=== PATIENT | female | born 1940 | race Caucasian/White ===

== ENCOUNTER 2017-05-06 14:47 | Inpatient (IN) | payer MEDICARE, BC ==
[2017-05-06 15:29] LABS: #Eosinphils 0.2 thou/uL (0.0-0.7); #Lymphocytes 3.3 thou/uL (1.20-3.40); #Monocytes 0.7 thou/uL (0.11-0.59); #Neutrophils 7.6 thou/uL (1.40-6.50); %Basophils 0.4 % (0.0-1.0); %Eosinophils 1.5 % (0.0-10.0); %Lymphocytes 27.8 % (21.0-51.0); %Monocytes 6.3 % (0.0-10.0); Hematocrit 46.2 % (36.0-47.0); Mean Platelet Volume 7.4 fL (7.4-10.4); Red Blood Cell (RBC) Count 5.01 mill/uL (4.20-5.40); White Blood Cell (WBC) Count 11.9 thou/uL (4.8-10.8)
--- NOTE | 2017-05-06 15:32 | RAD ---
PORTABLE CHEST: Date: 05/06/17 HISTORY: Chest pain. FINDINGS: Heart size and mediastinum are within normal limits. The lungs are clear of any focal infiltrative p rocess. There are no significant bony findings. IMPRESSION: No active intrathoracic disease. POS: [facility]
[2017-05-06 16:00] LABS: ALT (SGPT) 38 U/L (8-55); AST (SGOT) 28 U/L (5-34); Alkaline Phosphatase 69 U/L (40-150); Anion Gap 18 mmol/L (10-20); BUN (Urea Nitrogen) 15 mg/dL (9.8-20.1); Bilirubin, Total 0.6 mg/dL (0.2-1.2); CK (CPK) 119 U/L (29-168); Calc. Creatinine Clearance 0 mL/min (70-130); Calcium 10.6 mg/dL (7.8-10.44); Carbon Dioxide 24 mmol/L (23-31); Chloride 104 mmol/L (98-107); Estimated GFR-MDRD 68; Globulin 3.4 g/dL (2.4-3.5); Lipase 30 U/L (8-78); Protein, Total 7.7 g/dL (6.0-8.3)
[2017-05-06 16:05] LABS: Troponin I 0.893 ng/mL (< 0.028)
[2017-05-06] MEDS ORDERED: Enoxaparin Sodium 80 MG/0.8 ML SYRINGE ONE (16:16)
[2017-05-06] MEDS ORDERED: ISOVUE-370 76%-LOCM 1 ML ONE (16:41)
--- NOTE | 2017-05-06 17:16 | CT ---
CTA THORAX WITH CONTRAST: (Computed Tomographic Angiography, chest(noncoronary) with contrast material, and image postprocessi ng) (PE protocol) HISTORY: 76-year-old female with chest pain and dyspnea. TECHNIQUE: IV injection of iodinated contrast: 100 mL Isovue-370. Scan acquisition timing attempted to coincide with iodinated contrast bolus reaching maximal density in pulmonary arteries. 3D MIP reconstructions. FINDINGS: Pulmonary thromboembolism: None. Lungs: Clear. Pneumothorax: None. Pleural effusion: None. Thoracic aorta: No aneurysm or dissection. Mediastinum: No lymphadenopathy or other mass. Dalia: No lymphadenopathy or other mass. There is a 16 mm round, exophytic, well circumscribed mass protruding from the dorsal cortical surfa ce of the left renal upper pole, with density of approximately 55 HU. Hepatic attenuation is diffusely low, consistent with fatty liver. IMPRESSION: 1. No pulmonary thromboembolism. 2. No evidence of active intrathoracic disease. 3. Intermediate density 1.6 cm pedunculated mass arising from cortex of left kidney. This could be a hemorrhagic renal cyst, but neoplasm is a possibility. Further evaluation is recommended, beginnin g with a renal ultrasound. If this is not visible on the renal ultrasound, then a 3-phase CT of the abdomen with and without contrast (renal mass protocol) would be recommended. 4. Hepatic steatosis. sonia[] POS: [facility]
[2017-05-06] MEDS ORDERED: Lorazepam 1 MG TAB PO PRN (18:05)
[2017-05-06] MEDS ORDERED: Dextrose 50% Abboject 50 ML SYRINGE SLOW IVP PRN (18:05)
[2017-05-06] MEDS ORDERED: Dextrose 5% in Water 1,000 ML IV PRN (18:05)
[2017-05-06] MEDS ORDERED: Acetaminophen 325 MG TAB PO PRN (18:05)
[2017-05-06] MEDS ORDERED: Morphine Sulfate 2 MG/ML SYRINGE SLOW IVP PRN (18:05)
[2017-05-06] MEDS ORDERED: HumaLOG 300 UNITS/3 ML VIAL SC PRN (18:05)
[2017-05-06 18:16] VITALS: BMI 29.5
[2017-05-06] MEDS: Nitroglycerin 2% Ointment 1 INCH/1 GM Packet TOP SCH ×2 (19:04→23:00)
--- NOTE | 2017-05-06 20:37 | HP ---
PRIMARY CARE PHYSICIAN: Dr. Cain. CHIEF COMPLAINT: Dyspnea on exertion. HISTORY OF PRESENT ILLNESS: Ms. Person is a very pleasant 76-year-old female that has a history o f hypertension and diabetes mellitus. She says that she began noticing a problem about a week or so ago. She says that she normally goes for about a 2 mile walk every day and goes to her exercise cl asses 4 times a week. She says that on Tuesday when she was walking she felt a tightness in the left side of her chest on the left breast. She says that this would essentially come and go. She also says that she was more short of breath. She says that she could barely walk from the parking garage to a pinto in a stadium where she was going to watch the some [employer] Olympics like games. She als o had gone up the stairs in this stadium and when she got up in the top, she was extremely winded an d had to rest. Her son had asked her to go and get some sunglasses out of the car, but she was unab le to because she was extremely tired; this was very unusual for her. About an hour and a half late r, she was able to go down the stairs again. She also says that during the week she was not able to complete some of her exercise classes due to shortness of breath; and also on the day of admission, she was more short of breath trying to do her usual errands and social activities and volunteering and as a result, she came in to see her primary care physician who did an EKG on her and thought it looked a bit different and sent her to the emergency room. In the ER, she was found to have an elev ated troponin of 0.89 and is being admitted for a non-ST segment elevated LA. Currently, the patien t says she feels great and does not feel like she needs to be in the hospital. REVIEW OF SYSTEMS: Constitutional: There have been no fevers, chills, no night sweats, no weight l oss. HEENT: No headaches, no dizziness, no visual changes, no sore throat, rhinorrhea, neck pain, no adenopathy. Pulmonary: No hemoptysis, no cough, no wheezing. Cardiovascular: As the history o f present illness. There is no PND, no orthopnea. No lower extremity edema. Gastrointestinal: No abdominal pain. No nausea. No vomiting. No change in bowels. Genitourinary: No urinary frequen cy, hematuria. No hesitancy. Neurologic: No focal weakness or numbness. No seizures. Psychiatri c: No symptoms of anxiety or depression. Skin and Integument: No skin changes. No rash. PAST MEDICAL HISTORY: Significant for diabetes mellitus for the past 12 years, hyperlipidemia, hype rtension, anxiety, and degenerative joint disease. PAST SURGICAL HISTORY: She has had a colonoscopy, hysterectomy, and wrist surgery. ALLERGIES: CODEINE, PENICILLIN, SIMVASTATIN that she cannot remember ever being allergic to this me dicine, SOY SULFA, GABAPENTIN and TRAMADOL. FAMILY HISTORY: Significant for diabetes mellitus in her father. Mother had cerebrovascular diseas e and cancer and her sister had coronary artery disease in her 70s. SOCIAL HISTORY: She is a nonsmoker, nondrinker. She is , has two children. MEDICATIONS: Include glimepiride 2 mg daily, losartan 50 mg daily, metformin 500 mg daily, Januvia 5 mg daily, metronidazole gel. PHYSICAL EXAMINATION: GENERAL: She is alert and oriented. She appears to be in no acute distress. She appears much leo amparo than her stated age. VITAL SIGNS: Blood pressure is 125/78, heart rate 91, respiratory rate of 15, temperature is 98.2. HEENT: Pupils are equal, round, and reactive. Extraocular muscles are intact. Sclerae are anicter ic. Throat: There is no erythema. No exudates. NECK: No adenopathy. No bruits. LUNGS: Clear. No wheezing. No rales. CARDIOVASCULAR: She has a normal S1, S2. I did not appreciate an S3 or S4. No murmurs, clicks or rubs. ABDOMEN: Soft, nontender, nondistended. Positive for bowel sounds. There is no rebound or guardin g. EXTREMITIES: There is no edema. She has got good dorsalis pedis pulses bilaterally. There are no lesions on the feet. NEUROLOGICALLY: The exam is grossly nonfocal. SIGNIFICANT LABORATORY AND X-RAYS: EKG was sinus rhythm, the rate was 107. She had some Q-waves in 3 and some T-wave abnormality in V2, V3 and V5. Her troponin was 0.893. Sodium 142, potassium 4.2 , chloride is 104, CO2 is 24, BUN of 15, creatinine 0.82, glucose was 86. White blood cell count 11 .9, hemoglobin 15.1, hematocrit is 46.2, and platelet count was 278,000. ASSESSMENT AND PLAN: Ms. Person is a 76-year-old female that is being admitted for an acute coron olimpia syndrome. Her anginal equivalent is dyspnea on exertion. She will be admitted to Telemetry. W e will start her on aspirin, nitrates as tolerated and low dose beta-bo, as well as heparin. S he says that she does not remember being allergic to a statin and is not sure where that came from. Therefore, we will give one time dose of statin and watch her progress. Get an echocardiogram and Cardiology will be consulted. For her diabetes, we will place her on a sliding scale insulin and wi ll leave her n.p.o. after midnight.
[2017-05-06] MEDS: Atorvastatin Calcium 10 MG TAB PO SCH (20:39)
[2017-05-06] MEDS: Docusate 100 MG CAP PO SCH (20:44)
[2017-05-06] MEDS: Famotidine 20 MG TAB PO SCH (20:44)
[2017-05-06] MEDS ORDERED: Enoxaparin Sodium 30 MG/0.3 ML SYRINGE SC SCH (21:00)
[2017-05-06] MEDS: Dextrose 5 % And 0.9 % NaCl 1,000 ML IV SCH (22:59)
[2017-05-06] MEDS ORDERED: Glimepiride 2 MG TAB PO SCH (23:00)
[2017-05-06] MEDS ORDERED: Alogliptin Benzoate 25 MG TABLET PO SCH (23:00)
[2017-05-06 23:30] LABS: Troponin I 2.043 ng/mL (< 0.028)
[2017-05-07 05:44] LABS: #Eosinphils 0.2 thou/uL (0.0-0.7); #Lymphocytes 2.7 thou/uL (1.20-3.40); #Monocytes 0.6 thou/uL (0.11-0.59); %Basophils 0.4 % (0.0-1.0); %Eosinophils 2.2 % (0.0-10.0); %Lymphocytes 31.3 % (21.0-51.0); %Monocytes 6.8 % (0.0-10.0); Hematocrit 40.7 % (36.0-47.0); Mean Platelet Volume 7.7 fL (7.4-10.4); Red Blood Cell (RBC) Count 4.42 mill/uL (4.20-5.40); White Blood Cell (WBC) Count 8.5 thou/uL (4.8-10.8)
[2017-05-07 06:08] LABS: Anion Gap 13 mmol/L (10-20); BUN (Urea Nitrogen) 14 mg/dL (9.8-20.1); Calc. Creatinine Clearance 86 mL/min (70-130); Calcium 9.3 mg/dL (7.8-10.44); Carbon Dioxide 26 mmol/L (23-31); Chloride 103 mmol/L (98-107); Cholesterol 164 mg/dl (< 200 Desired); Estimated GFR-MDRD 77; LDL Cholesterol, Calculated 87 mg/dL
[2017-05-07] MEDS: Nitroglycerin 2% Ointment 1 INCH/1 GM Packet TOP SCH ×3 (07:17→17:22)
[2017-05-07] MEDS: Aspirin 325 MG TAB PO SCH (08:33)
[2017-05-07] MEDS: Famotidine 20 MG TAB PO SCH ×2 (08:34→21:45)
[2017-05-07] MEDS: Docusate 100 MG CAP PO SCH ×2 (08:34→21:45)
[2017-05-07] MEDS ORDERED: Enoxaparin Sodium 80 MG/0.8 ML SYRINGE SC SCH (09:00)
--- NOTE | 2017-05-07 10:07 | PDOC.PN ---
- Subjective Encounter Start Date: 05/07/17 Encounter Start Time: 10:04 Ms. Person does not have any complaints. she says last night she may have had a little tightness in her chest, and felt a bit short of breath while going to the bathroom, but she is better now. - Objective Resuscitation Status: Resuscitation Status FULL:Full Resuscitation MAR Reviewed: Yes Vital Signs & Weight: Vital Signs (12 hours) Temp Pulse Resp BP Pulse Ox 05/07/17 08:39 97.9 F 80 16 125/66 93 L 05/07/17 04:00 98.1 F 90 18 111/56 L 92 L 05/07/17 00:00 88 18 139/69 Weight Weight 181 lb 14.4 oz I&O: 05/06/17 05/07/17 05/08/17 06:59 06:59 06:59 Intake Total 830 Output Total 900 Balance -70 Result Diagrams: 05/07/17 04:44 05/07/17 04:44 Additional Labs: Accuchecks 05/07/17 05/06/17 05/06/17 05:58 20:58 19:01 POC Glucose 157 H 170 H 99 Phys Exam - Physical Examination HEENT: PERRLA Respiratory: no wheezing, no rales, no rhonchi, clear to auscultation bilateral Cardiovascular: RRR, no significant murmur Gastrointestinal: soft, non-tender, positive bowel sounds Musculoskeletal: no edema Dx/Plan (1) NSTEMI (non-ST elevated myocardial infarction) Code(s): I21.4 - NON-ST ELEVATION (NSTEMI) MYOCARDIAL INFARCTION Status: Acute (2) Hypertension Code(s): I10 - ESSENTIAL (PRIMARY) HYPERTENSION Status: Acute (3) Diabetes mellitus type 2 in obese Code(s): E11.69 - TYPE 2 DIABETES MELLITUS WITH OTHER SPECIFIED COMPLICATION; E66.9 - OBESITY, UNSPECIFIED Status: Acute - Plan * NSTEMI- will continue the current medications- and await cardiology evaluation * HTN- blood pressure is stable * DM- continue Sliding scale insulin- Metformin is being held in case she goes for Cardiac Cath.
[2017-05-07] MEDS ORDERED: Diazepam 5 MG TAB PO SCH (13:15)
[2017-05-07] MEDS ORDERED: Communication Order-Pharmacy FS SCH (13:15)
[2017-05-07] MEDS: Sodium Chloride 0.9% 1,000 ML IV SCH ×2 (13:45→21:45)
[2017-05-07] MEDS ORDERED: Heparin 10,000 UNITS/1 ML VIAL ONE (15:18)
[2017-05-07] MEDS ORDERED: Nitroglycerin 100MG/250ML BOT 250 ML ONE (15:18)
[2017-05-07] MEDS ORDERED: Fentanyl 100 MCG/2 ML VIAL ONE (15:18)
[2017-05-07] MEDS ORDERED: Midazolam HCl 2 mg/2 ml Vial ONE (15:19)
[2017-05-07] MEDS ORDERED: Iopamidol 370 76% 100 ML VIAL ONE (16:34)
[2017-05-07] MEDS: Carvedilol 3.125 MG TAB PO SCH (17:22)
--- NOTE | 2017-05-07 18:12 | CON ---
DATE OF CONSULTATION: 05/07/2017 REFERRING PHYSICIAN: Dr. Hernandez. PRIMARY CARE PHYSICIAN: Dr. Coe. REASON FOR CONSULTATION: Non-ST segment elevation myocardial infarction. HISTORY OF PRESENT ILLNESS: Mrs. Person is a very active 76-year-old female, who presen ts with progressive shortness of breath, dyspnea on exertion over the past week. She presented to er primary care physician's office, who did an EKG and recommended that she go to the ER. Serial ca rdiac enzymes proved positive for myocardial injury with elevation of her troponin to approximately 2. She has had symptoms for about a week with progressive worsening of shortness of breath over thi s period of time. PAST MEDICAL HISTORY: 1. Type 2 diabetes mellitus for 12 years. 2. Dyslipidemia. 3. Hypertension. 4. Degenerative joint disease. PAST SURGICAL HISTORY: 1. Colonoscopy. 2. Hysterectomy. 3. Wrist surgery. ALLERGIES: CODEINE, PENICILLIN, SIMVASTATIN, SOY, SULFA, GABAPENTIN, TRAMADOL. SOCIAL HISTORY: She denies tobacco use, ethanol abuse, or illicit or recreational drug use. She is with 2 children. FAMILY HISTORY: Negative with respect to premature atherosclerosis. MEDICATIONS: Include, 1. Glimepiride 2 mg daily. 2. Losartan 50 mg daily. 3. Metformin 500 mg daily. 4. Januvia 5 mg daily. 5. Metronidazole gel. REVIEW OF SYSTEMS: As per history of present illness. Remainder of 12 system review is negative. PHYSICAL EXAMINATION: VITAL SIGNS: Blood pressure is 142/67, pulse 80 and regular, respiratory rate 16 and nonlabored, te mperature 97.7, oxygen saturation 92% on room air. GENERAL: This is a well-developed, well-nourished, 76-year-old female in no acute distres s. She is alert and oriented x4. She answers questions appropriately. HEENT: Head was atraumatic, normocephalic. Pupils are equally round and reactive. Sclerae and con junctivae are clear. There are no oral lesions. NECK: Supple, no JVD, thyromegaly, carotid bruits. CHEST: Symmetrical inspiration and expiration. HEART: Regular rate and rhythm. No murmur, S3 or S4. PMI is nondisplaced. Not enlarged. LUNGS: Clear to auscultation in all plata. No adventitious sounds appreciated. ABDOMEN: Soft, nontender, nondistended, without mass or organomegaly. Bowel sounds are present in all 4 quadrants. No flank bruits auscultated. EXTREMITIES: 2+ pulses noted bilaterally. Upper and lower extremity strength 5/5 bilaterally. No clubbing, cyanosis, or edema. NEUROLOGIC: Grossly intact. No focal motor deficits appreciated. DATABASE: EKG reveals sinus rhythm, nonspecific ST changes. LABORATORY DATA: CBC reveals a white count of 8, H\T\H of 13 and 40, platelet count 215,000. Diffe rential white blood cells normal. Red cell indices normocytic. Coagulation studies: D-dimer is elevated at 0.59. Chemistries reveal normal electrolytes, BUN and creatinine of 14 and 0.7, GFR is estimated at 77. L FTs are within normal limits. Troponins elevated to peak of 2 trending downward, currently. Lipids revealed elevated triglycerides at 195, otherwise normal values. ASSESSMENT: 1. Non-ST segment elevation myocardial infarction. 2. Hypertension, marginally controlled. 3. Dyslipidemia, no current therapy. 4. Type 2 diabetes mellitus, on oral agents. RECOMMENDATIONS: 1. From a cardiac standpoint, she is stable and chest pain free currently. We have discussed the o ptions including invasive strategy for evaluation and treatment as indicated, which is recommended. We have discussed risks, benefits, possible complications involving heart catheterization, plus or minus interventional strategies, as indicated she wishes to proceed. We will make further recommend ations when her anatomy is further defined. 2. We will initiate medical therapy for coronary artery disease and status post PR and initiate marcos que stabilization with Crestor with outpatient followup after this hospitalization. I appreciate the opportunity to participate.
[2017-05-07] MEDS: Alogliptin Benzoate 25 MG TABLET PO SCH (21:44)
[2017-05-07] MEDS: Glimepiride 2 MG TAB PO SCH (21:45)
[2017-05-07] MEDS: Atorvastatin Calcium 10 MG TAB PO SCH (21:45)
[2017-05-07] MEDS: Dextrose 5 % And 0.9 % NaCl 1,000 ML IV SCH (21:46)
[2017-05-08] MEDS: Nitroglycerin 2% Ointment 1 INCH/1 GM Packet TOP SCH ×4 (00:03→20:20)
[2017-05-08] MEDS: Aspirin 325 MG TAB PO SCH (08:15)
[2017-05-08] MEDS: Carvedilol 3.125 MG TAB PO SCH ×2 (08:15→17:02)
[2017-05-08] MEDS: Famotidine 20 MG TAB PO SCH ×2 (08:15→20:21)
[2017-05-08] MEDS: Docusate 100 MG CAP PO SCH ×2 (08:16→20:22)
[2017-05-08] MEDS: Sodium Chloride 0.9% 1,000 ML IV SCH ×2 (08:17→17:05)
--- NOTE | 2017-05-08 10:57 | CON ---
DATE OF CONSULTATION: 05/08/2017 REASON FOR CONSULTATION: Evaluation for coronary artery bypass surgery. PERTINENT HISTORY: Patient is a 76-year-old female who presented yesterday with a [id number] elevation myocardial infarction. Peak troponin I was 2.04. Cardiac catheterization demonstrated severe 1 vessel disease involving the LAD, not amenable to catheter-based intervention. Ejection fraction was 50% . LVEDP was 10. The patient was subsequently referred for coronary artery bypass surgery. PAST MEDICAL HISTORY: 1. Hypertension. 2. Borderline dyslipidemia. 3. Degenerative joint disease. PAST SURGICAL HISTORY: 1. Left wrist ORIF. 2. Hysterectomy. 3. Colonoscopy. ALLERGIES: CODEINE, PENICILLIN, SIMVASTATIN, SULFA, GABAPENTIN, and TRAMADOL. SOCIAL HISTORY: Non-smoker. Occasional white wine drinker. FAMILY HISTORY: Noncontributory for premature coronary artery disease. REVIEW OF SYSTEMS: No history of kidney or liver disease, stroke, or claudication. LABORATORY DATA AND X-RAY: Creatinine 0.74. Hemoglobin 13.0. Platelet count 215,000. Chest x-ray shows no acute process. MEDICATIONS PRIOR TO ADMISSION: Included losartan, Januvia, Amaryl, and metformin. CURRENT MEDICATIONS: Alogliptin, aspirin, Lipitor, Capoten, Coreg, Colace, Lovenox, Pepcid, Amaryl, and Nitro-Bid. PHYSICAL EXAMINATION: VITAL SIGNS: Height 5 feet 8 inches, weight 182 pounds, blood pressure 134/68, heart rate 96, temperature 96.2. GENERAL: Well-developed, well-nourished female, in no acute distress. She is fully oriented. HEENT: Grossly unremarkable. NECK: Without JVD or adenopathy. LUNGS: Clear with good inspiratory effort. HEART: Regular rate and rhythm without murmur or rub. ABDOMEN: Soft and nontender, without palpable mass or hepatosplenomegaly. EXTREMITIES: Without edema. VASCULAR: Palpable radial, femoral, and ankle pulses bilaterally. No carotid bruits were appreciated. Abdominal aorta is nonpalpable. NEUROLOGIC: No focal deficits. IMPRESSION: [id number] elevation myocardial infarction, severe one-vessel coronary artery disease not amenable to catheter-based intervention, and mild reduction in left ventricular function. RECOMMENDATIONS: Coronary artery bypass surgery to which the patient is in agreement following discussion with her referring guard manager and myself. The indications, benefits, alternatives, and risks were explained in detail to the patient. All questions were answered. The patient agrees to proceed without reservations. The above discussion will be reiterated to the patient's and daughter when I have a chance to meet with them preoperatively. ANGELA
[2017-05-08] MEDS: Dextrose 5 % And 0.9 % NaCl 1,000 ML IV SCH (14:36)
--- NOTE | 2017-05-08 16:10 | PDOC.CTH ---
Cardiology Progress Note - Subjective No new issues overnight. Plan for surgery in am discussed with patient and family. Case discussed with Dr. Mancilla. ROS negative today. - Objective Vital Signs Temp Pulse Pulse Pulse Resp BP BP 05/08/17 15:55 98 F 87 16 05/08/17 15:47 133/71 05/08/17 12:01 98.4 F 84 16 05/08/17 09:57 89 83 132/63 05/08/17 08:15 134/68 05/08/17 07:51 96.2 F L 96 20 BP BP Pulse Ox Pulse Ox Pulse Ox 05/08/17 15:55 133/71 92 L 05/08/17 15:47 05/08/17 12:01 119/62 94 L 05/08/17 09:57 132/63 93 L 93 L 05/08/17 08:15 05/08/17 07:51 134/68 92 L Weight 182 lb 05/07/17 05/08/17 05/09/17 06:59 06:59 06:59 Intake Total 830 2300 Output Total 900 2200 Balance -70 100 - Physical Examination General/Neuro: alert & oriented x3, NAD Neck: carotid US brisk, no JVD present Lungs: CTA, unlabored respirations Heart: PMI normal, RRR Abdomen: no HSM, NT/ND, soft Extremities: other: (2+ pulses, no edema) Other PE findings: Neuro: no focal motor defs - Telemetry Telemetry Rhythm: sinus rhythm - Labs Result Diagrams: 05/07/17 04:44 05/07/17 04:44 Troponin/CKMB CK-MB (CK-2) 6.2 ng/mL (0-6.6) 05/06/17 15:15 Troponin I 1.660 ng/mL (< 0.028) H* 05/07/17 07:06 - Assessment/Plan 1. CAD, s/p NSTEMI: CABG planned for tomorrow. 2. HTN: controlled. Continue medical management. 3. dyslipidemia: statin recommended for life.
[2017-05-08] MEDS: Atorvastatin Calcium 10 MG TAB PO SCH (20:20)
[2017-05-08] MEDS: Alogliptin Benzoate 25 MG TABLET PO SCH (20:23)
[2017-05-08] MEDS: Glimepiride 2 MG TAB PO SCH (20:24)
[2017-05-09] MEDS: Nitroglycerin 2% Ointment 1 INCH/1 GM Packet TOP SCH ×2 (02:26→04:57)
[2017-05-09] MEDS: Sodium Chloride 0.9% 1,000 ML IV SCH ×2 (04:53→13:48)
[2017-05-09] MEDS: Carvedilol 3.125 MG TAB PO SCH (05:04)
[2017-05-09] MEDS ORDERED: Heparin 10,000 UNITS/1 ML VIAL 30,000 UNITS in Sodium Chloride 0.9% 1,000 ML FS SCH (07:00)
[2017-05-09] MEDS ORDERED: Vancomycin HCl 1.5 GM in Sodium Chloride 0.9% 250 ML 300 ML IVPB SCH (08:00)
[2017-05-09] MEDS ORDERED: [UNRECOGNIZED DRUG - REMARK] FS SCH (08:00)
[2017-05-09] MEDS ORDERED: Albumin 5% 500 ML ONE (08:56)
[2017-05-09] MEDS ORDERED: Fentanyl 250 MCG/5 ML VIAL ONE (08:56)
[2017-05-09] MEDS ORDERED: Midazolam HCl 5 mg/5 ml Vial ONE (08:56)
[2017-05-09] MEDS ORDERED: Propofol 200 MG/20 ML VIAL ONE (09:48)
[2017-05-09] MEDS ORDERED: ePHEDrine/0.9% NaCl/PF SYRINGE 50 mg/10 ml ONE (09:48)
[2017-05-09] MEDS ORDERED: PHENYLEPHRINE-NS 100 MCG/ML 10 ML SYRINGE ONE ×2 (09:48→12:52)
[2017-05-09] MEDS ORDERED: Esmolol 100 MG/10 ML VIAL ONE (09:48)
[2017-05-09] MEDS ORDERED: Lidocaine 1% PF 5 ML VIAL ONE (09:48)
[2017-05-09] MEDS ORDERED: Papaverine 60 MG/2 ML VIAL ONE (10:54)
[2017-05-09] MEDS ORDERED: Phenylephrine 10 MG/NS 250 ML 0 ML ONE (11:40)
[2017-05-09] MEDS ORDERED: Phenylephrine 10 MG/NS 250 ML 250 ML ONE (12:50)
[2017-05-09] MEDS ORDERED: Nitroglycerin 50 MG/250 ML BOT 250 ML IVPB PRN (13:28)
[2017-05-09] MEDS ORDERED: Norepinephrine 8 MG/0.9% NS 250 ML IVPB PRN (13:28)
[2017-05-09] MEDS ORDERED: Ondansetron HCl/PF 4 MG/2 ML Vial IVP PRN (13:28)
[2017-05-09] MEDS ORDERED: Bisacodyl 5 MG TAB PO PRN (13:28)
[2017-05-09] MEDS ORDERED: Phenylephrine 10 MG/NS 250 ML 250 ML IVPB PRN (13:28)
[2017-05-09] MEDS ORDERED: Bisacodyl 10 MG SUPP PR PRN (13:28)
[2017-05-09] MEDS ORDERED: Promethazine HCl 25 MG/ML VIAL IM PRN (13:28)
[2017-05-09] MEDS ORDERED: DOPamine 400 MG/D5W 250 ML 250 ML IVPB PRN (13:28)
[2017-05-09] MEDS ORDERED: Guaifenesin DM 100-10/5 ML UDCUP PO PRN (13:28)
[2017-05-09] MEDS ORDERED: Morphine Sulfate 2 MG/ML SYRINGE SLOW IVP PRN (13:28)
[2017-05-09] MEDS ORDERED: Acetaminophen 325 MG TAB PO PRN (13:28)
[2017-05-09] MEDS ORDERED: Mag-Al 1200 mg/1200 mg/30 ML UDCUP PO PRN (13:28)
[2017-05-09] MEDS ORDERED: HYDROcodone/Acetaminophen 5/325 mg Tablet PO PRN ×2 (13:28)
[2017-05-09] MEDS ORDERED: Post-Op Insulin Drip Protocol IVPB ONE (13:28)
[2017-05-09] MEDS ORDERED: Dextrose 5% in Water 1,000 ML IV PRN (13:31)
[2017-05-09] MEDS ORDERED: Insulin Regular 300 UNITS/3 ML VIAL SC PRN (13:31)
[2017-05-09] MEDS ORDERED: Dextrose 50% Abboject 50 ML SYRINGE SLOW IVP PRN (13:31)
[2017-05-09 13:39] LABS: Mechanical Tidal Volume 550 ml; Mode SIMV; Oxyhemoglobin 95.8 % (94.0-97.0); Pressure Support 10 cmH2O; Sodium 142 mmol/L (135-148); Vent YES
[2017-05-09 13:41] LABS: #Eosinphils 0.2 thou/uL (0.0-0.7); #Lymphocytes 1.7 thou/uL (1.20-3.40); #Monocytes 0.6 thou/uL (0.11-0.59); #Neutrophils 10.8 thou/uL (1.40-6.50); %Basophils 0.4 % (0.0-1.0); %Eosinophils 1.4 % (0.0-10.0); %Lymphocytes 12.9 % (21.0-51.0); %Monocytes 4.2 % (0.0-10.0); Mean Platelet Volume 7.8 fL (7.4-10.4); White Blood Cell (WBC) Count 13.3 thou/uL (4.8-10.8)
[2017-05-09 13:47] LABS: PTT 25.8 SEC (22.9-36.1)
[2017-05-09 14:13] LABS: Anion Gap 11 mmol/L (10-20); BUN (Urea Nitrogen) 8 mg/dL (9.8-20.1); Calc. Creatinine Clearance 99 mL/min (70-130); Carbon Dioxide 21 mmol/L (23-31); Chloride 111 mmol/L (98-107); Estimated GFR-MDRD 90
--- NOTE | 2017-05-09 14:55 | RAD ---
CHEST ONE VIEW: History: Heart surgery. Comparison: 05-06-17 FINDINGS: Cardiac silhouette is magnified by projection. Pulmonary vasculature is unremarkable. Mediastinum is midline with post-operative changes now evident. Radiopaque drain overlies the mediastinum. Nasogas tric tube descends to the stomach. Tip of the endotracheal catheter overlies the thoracic inlet. Car diac monitor leads overlie the chest. IMPRESSION: 1. Post-operative changes of mediastinum with lines and tubes as detailed above. POS: [facility]
[2017-05-09 15:18] LABS: Oxyhemoglobin 97.8 % (94.0-97.0); Sodium 143 mmol/L (135-148)
[2017-05-09 15:19] LABS: Oxyhemoglobin 97.7 % (94.0-97.0); Sodium 143 mmol/L (135-148)
[2017-05-09 15:19] LABS: Oxyhemoglobin 97.8 % (94.0-97.0); Sodium 142 mmol/L (135-148)
--- NOTE | 2017-05-09 15:33 | PDOC.PN ---
- Subjective Encounter Start Date: 05/09/17 Encounter Start Time: 15:32 Ms. Person has returned from surgery. She is awake and alert. She indicates some discomfort in the left side under her breast, otherwise ok. - Objective Resuscitation Status: Resuscitation Status FULL:Full Resuscitation MAR Reviewed: Yes Vital Signs & Weight: Vital Signs (12 hours) Temp Pulse Resp BP BP Pulse Ox 05/09/17 15:13 80 121/61 05/09/17 14:15 95 F L 80 14 100 05/09/17 14:00 95 F L 05/09/17 13:15 86 128/44 L 05/09/17 05:02 144/77 H 05/09/17 05:01 144/77 H 05/09/17 04:25 97.8 F 93 16 144/77 H 93 L Weight Weight 181 lb 6 oz Most Recent Monitor Data Heart Rate from ECG 81 NIBP 110/63 NIBP BP-Mean 90 Respiration from ECG 13 SpO2 100 I&O: 05/08/17 05/09/17 05/10/17 06:59 06:59 06:59 Intake Total 2300 3260 Output Total 2200 1300 325 Balance 100 1960 -325 Result Diagrams: 05/09/17 13:35 05/09/17 13:35 Additional Labs: Accuchecks 05/09/17 05/09/17 05/09/17 15:16 13:29 12:16 POC Glucose 215 H 219 H 197 H 05/09/17 05/09/17 05/08/17 11:03 06:29 20:51 POC Glucose 169 H 169 H 173 H 05/08/17 17:00 POC Glucose 158 H Phys Exam - Physical Examination HEENT: PERRLA Respiratory: no wheezing, no rales, no rhonchi, clear to auscultation bilateral Cardiovascular: RRR, no significant murmur, no rub Gastrointestinal: soft, non-tender, positive bowel sounds Musculoskeletal: edema present Dx/Plan (1) NSTEMI (non-ST elevated myocardial infarction) Code(s): I21.4 - NON-ST ELEVATION (NSTEMI) MYOCARDIAL INFARCTION Status: Acute (2) Hypertension Code(s): I10 - ESSENTIAL (PRIMARY) HYPERTENSION Status: Acute (3) Diabetes mellitus type 2 in obese Code(s): E11.69 - TYPE 2 DIABETES MELLITUS WITH OTHER SPECIFIED COMPLICATION; E66.9 - OBESITY, UNSPECIFIED Status: Acute - Plan * NSTEMI- s/p CABG- patient is hemodynamically stable * HTN- blood pressure is stable * DM- blood glucose is slightly elevated- she is on the post CABG protocol. * Monitor renal function
[2017-05-09 15:40] LABS: Oxyhemoglobin 94.9 % (94.0-97.0); Sodium 142 mmol/L (135-148); Spontaneous Rate 22 min; Vent YES
[2017-05-09 15:41] LABS: Mode PSV; Pressure Support 10 cmH2O
[2017-05-09 15:45] LABS: Mode OR ABG; Vent YES
[2017-05-09 15:46] LABS: Mode OR ABG; Vent YES
[2017-05-09 15:46] LABS: Mode OR ABG; Vent YES
[2017-05-09] MEDS: Fentanyl 100 MCG/2 ML VIAL SLOW IVP PRN ×3 (15:51→21:36)
[2017-05-09] MEDS: Ketorolac Tromethamine 30 MG/ML VIAL IVP SCH ×2 (17:10→23:16)
[2017-05-09] MEDS ORDERED: Ketorolac Tromethamine 30 MG/ML VIAL IVP SCH (18:00)
[2017-05-09] MEDS: Famotidine/PF 20 mg/2ml Vial SLOW IVP SCH (19:29)
[2017-05-09] MEDS: Vancomycin HCl 1.5 GM in Sodium Chloride 0.9% 250 ML 300 ML IVPB SCH (19:34)
--- NOTE | 2017-05-09 20:07 | OP ---
PREOPERATIVE DIAGNOSES: Put-RA-[id number] elevation myocardial infarction, severe 1-vessel coronary artery disease not amenable to catheter-based intervention, and mild reduction in left ventricular function. SURGEON: Jeremy Mancilla M.D. MANAGER BUILDING: Reece Jonas M.D. POSTOPERATIVE DIAGNOSES: [id number] elevation myocardial infarction, severe 1-vessel coronary artery disease not amenable to catheter-based intervention, and mild reduction in left ventricular function. SPONGE AND NEEDLE COUNTS: Correct. ANESTHESIA: General. OPERATION PROCEDURE: Off-pump coronary artery bypass grafting x2 with left internal mammary artery to left anterior descending and reversed greater saphenous vein to diagonal. OPERATION FINDINGS: Moderate cardiomegaly with no obvious LV scarring. The distal diagonal was the only suitable diagonal for grafting. At the sites of distal anastomosis the LAD was 1.5 mm and the diagonal 1.5-1.75 mm. Left internal mammary artery and greater saphenous vein were adequate conduits. DESCRIPTION OF OPERATION: The patient was taken to the operating room. Following the induction of general endotracheal anesthesia, the patient was prepped and draped in the usual sterile fashion. Sternotomy was performed. Left internal mammary artery was dissected in extrapleural fashion. Simultaneously, a segment of left thigh greater saphenous vein was harvested via one small incision. The operation was performed off pump using the guidance system and mister-blower. Heparin dose was given achieving an ACT greater than 350. The vein graft was anastomosed in end-to-side fashion to the diagonal using a continuous 7-0 Prolene suture. In similar fashion, the left internal mammary artery was anastomosed to the LAD. The mammary artery pedicle was tacked to the epicardium using 6-0 Prolene sutures. Neither distal anastomoses required additional sutures. Systemic pressure was lowered to 80. Partial occluding clamp was applied with a single application and the proximal vein graft anastomoses performed to a punch hole using a continuous 6-0 Prolene suture. Partial clamp was removed and vein graft deaired. Heparin was reversed with protamine. Pericardium was not closed. Reuben drains were placed within the pericardial well and left pleural cavity. Sternum was reapproximated with interrupted #5 stainless steel wires. Linea alba and fascia were closed with running #1 Vicryl sutures followed by closure of the subcutaneous tissues with a running 2-0 Vicryl suture. Skin was closed with a 3 -0 Vicryl subcuticular stitch. Amicar had been used in standard fashion through the case. No intraoperative blood products were required. Prior to closure, vancomycin paste had been applied to the sternal halves. Platelet- enriched and platelet-poor plasma had also been applied to the sternal wound. The patient was taken to the ICU. ANGELA
[2017-05-09] MEDS: Potassium Chloride 20 MEQ/100 ML PREMIX BAG IVPB PRN (21:36)
[2017-05-10] MEDS: Fentanyl 100 MCG/2 ML VIAL SLOW IVP PRN ×4 (00:36→09:24)
[2017-05-10] MEDS: Ketorolac Tromethamine 30 MG/ML VIAL IVP SCH ×4 (05:01→23:45)
[2017-05-10 05:31] LABS: #Lymphocytes 1.5 thou/uL (1.20-3.40); #Neutrophils 12.4 thou/uL (1.40-6.50); %Basophils 0.2 % (0.0-1.0); %Eosinophils 0.2 % (0.0-10.0); %Lymphocytes 10.2 % (21.0-51.0); %Monocytes 6.9 % (0.0-10.0); Hematocrit 32.9 % (36.0-47.0); Mean Platelet Volume 7.7 fL (7.4-10.4); Red Blood Cell (RBC) Count 3.57 mill/uL (4.20-5.40)
[2017-05-10 05:58] LABS: Anion Gap 10 mmol/L (10-20); BUN (Urea Nitrogen) 10 mg/dL (9.8-20.1); Calc. Creatinine Clearance 83 mL/min (70-130); Calcium 8.9 mg/dL (7.8-10.44); Carbon Dioxide 23 mmol/L (23-31); Chloride 111 mmol/L (98-107); Estimated GFR-MDRD 74
[2017-05-10] MEDS: Potassium Chloride 20 MEQ/100 ML PREMIX BAG IVPB PRN (06:19)
--- NOTE | 2017-05-10 08:03 | PDOC.PN ---
- Subjective Encounter Start Date: 05/10/17 Encounter Start Time: 08:00 Ms. Person is complaining of some soreness on both her side, in her chest area. She denies any dyspnea. - Objective Resuscitation Status: Resuscitation Status FULL:Full Resuscitation MAR Reviewed: Yes Vital Signs & Weight: Vital Signs (12 hours) Temp Pulse Ox 05/10/17 07:00 98.1 F 05/10/17 06:43 95 05/10/17 05:00 97.9 F 05/10/17 00:00 97.9 F Weight Weight 190 lb 7.67 oz Most Recent Monitor Data Heart Rate from ECG 109 NIBP 89/47 NIBP BP-Mean 63 Respiration from ECG 0 SpO2 95 I&O: 05/09/17 05/10/17 05/11/17 06:59 06:59 06:59 Intake Total 3260 1223.9 90 Output Total 1300 2060 10 Balance 1960 -836.1 80 Result Diagrams: 05/10/17 04:30 05/10/17 04:30 Additional Labs: Accuchecks 05/10/17 05/10/17 05/10/17 06:59 06:18 05:01 POC Glucose 144 H 137 H 138 H 05/10/17 05/10/17 05/10/17 03:35 02:32 01:43 POC Glucose 174 H 169 H 168 H 05/10/17 05/09/17 05/09/17 00:26 23:18 22:23 POC Glucose 147 H 137 H 156 H 05/09/17 05/09/17 05/09/17 21:39 20:22 19:19 POC Glucose 131 H 160 H 165 H 05/09/17 05/09/17 05/09/17 18:18 17:15 16:03 POC Glucose 181 H 220 H 205 H 05/09/17 05/09/17 05/09/17 15:16 13:29 12:16 POC Glucose 215 H 219 H 197 H 05/09/17 05/09/17 11:03 10:09 POC Glucose 169 H 165 H Phys Exam - Physical Examination HEENT: PERRLA Respiratory: no wheezing, no rales, no rhonchi, clear to auscultation bilateral Cardiovascular: RRR, no significant murmur Gastrointestinal: soft, non-tender, positive bowel sounds Musculoskeletal: no edema Dx/Plan (1) NSTEMI (non-ST elevated myocardial infarction) Code(s): I21.4 - NON-ST ELEVATION (NSTEMI) MYOCARDIAL INFARCTION Status: Acute (2) Hypertension Code(s): I10 - ESSENTIAL (PRIMARY) HYPERTENSION Status: Acute (3) Diabetes mellitus type 2 in obese Code(s): E11.69 - TYPE 2 DIABETES MELLITUS WITH OTHER SPECIFIED COMPLICATION; E66.9 - OBESITY, UNSPECIFIED Status: Acute - Plan * NSTEMI- patient is s/p CABG- clinically stable * HTN- blood pressure is on the lower side, and it is noted that her antihypertensives are on hold * DM- blood glucose is stable * Symptom management.
[2017-05-10] MEDS: Famotidine/PF 20 mg/2ml Vial SLOW IVP SCH (08:49)
[2017-05-10] MEDS ORDERED: Aspirin 325 MG TAB PO SCH (09:00)
--- NOTE | 2017-05-10 09:11 | RAD ---
CHEST ONE VIEW: History: Heart surgery. Follow up. Comparison: 05-09-17 FINDINGS: Cardiac silhouette is magnified by projection. Pulmonary vasculature is unremarkable. Mediastinum re lai midline with post-operative changes and radiopaque drains. Endotracheal catheter is no longer visible. Other lines and tubes are unchanged in position. Mild atelectasis remains at the left lung base. monitor technician leads overlie the chest. IMPRESSION: 1. Interval extubation. Otherwise stable post-operative appearance of the chest. POS: [facility]
[2017-05-10] MEDS: Vancomycin HCl 1.5 GM in Sodium Chloride 0.9% 250 ML 300 ML IVPB SCH (09:48)
--- NOTE | 2017-05-10 10:19 | PDOC.CTH ---
Cardiology Progress Note - Subjective No new issues. Hemodynamics stable today. Tolerated out of bed to chair this morning. Rhythm stable. - Objective Vital Signs Temp Pulse Resp Pulse Ox 05/10/17 07:54 98.1 F 98 19 95 05/10/17 07:00 98.1 F 05/10/17 06:43 95 05/10/17 05:00 97.9 F 05/10/17 00:00 97.9 F Weight 190 lb 7.67 oz 05/09/17 05/10/17 05/11/17 06:59 06:59 06:59 Intake Total 3260 1223.9 485 Output Total 1300 2060 160 Balance 1960 -836.1 325 - Physical Examination General/Neuro: alert & oriented x3, NAD Neck: carotid US brisk, no JVD present Lungs: CTA, unlabored respirations Heart: PMI normal, RRR Abdomen: no HSM, NT/ND, soft Extremities: other: (2+ pulses, minimal edema) Other PE findings: Neuro: no focal motor defs - Telemetry Telemetry Rhythm: sinus rhythm/tach - Labs Result Diagrams: 05/10/17 04:30 05/10/17 04:30 Troponin/CKMB CK-MB (CK-2) 6.2 ng/mL (0-6.6) 05/06/17 15:15 Troponin I 1.660 ng/mL (< 0.028) H* 05/07/17 07:06 - Assessment/Plan 1. CAD, s/p NSTEMI: CABG postop day #1. Continue routine postop care. Increase activity as tolerated, IS. 2. HTN: controlled. Continue medical management. 3. dyslipidemia: statin recommended for life.
[2017-05-10] MEDS ORDERED: Insulin Detemir 100 UNITS/ML 12 UNITS in Pre-Filled Syringe 1 EACH SC SCH (10:45)
[2017-05-10] MEDS: Sodium Chloride 0.9% 1,000 ML IV SCH (11:22)
[2017-05-10] MEDS ORDERED: Nitroglycerin 0.4 MG TAB 1 EACH SL PRN (13:04)
[2017-05-10] MEDS ORDERED: Bisacodyl 10 MG SUPP PR PRN (13:04)
[2017-05-10] MEDS ORDERED: Mag-Al 1200 mg/1200 mg/30 ML UDCUP PO PRN (13:04)
[2017-05-10] MEDS ORDERED: Artificial Tears 18 DROP/0.9 ML EA EYE PRN (13:04)
[2017-05-10] MEDS ORDERED: Fentanyl 100 MCG/2 ML VIAL SLOW IVP PRN ×2 (13:04)
[2017-05-10] MEDS ORDERED: HYDROcodone/Acetaminophen 5/325 mg Tablet PO PRN (13:04)
[2017-05-10] MEDS ORDERED: Milk Of Magnesia 30 ML UDCUP PO PRN (13:04)
[2017-05-10] MEDS ORDERED: Zolpidem Tartrate 5 MG TAB PO PRN (13:04)
[2017-05-10] MEDS ORDERED: Promethazine HCl 25 MG/ML VIAL IM PRN (13:04)
[2017-05-10] MEDS ORDERED: Ondansetron HCl/PF 4 MG/2 ML Vial IVP PRN (13:04)
[2017-05-10] MEDS ORDERED: Mineral Oil ENEMA PR PRN (13:04)
[2017-05-10] MEDS ORDERED: diphenhydrAMINE HCl 25 MG CAP PO PRN (13:04)
[2017-05-10] MEDS ORDERED: Acetaminophen 325 MG TAB PO PRN (13:04)
[2017-05-10] MEDS ORDERED: Dextrose 5% in Water 1,000 ML IV PRN (13:21)
[2017-05-10] MEDS ORDERED: Dextrose 50% Abboject 50 ML SYRINGE SLOW IVP PRN (13:21)
[2017-05-10] MEDS: Insulin Regular 300 UNITS/3 ML VIAL SC PRN (21:14)
[2017-05-10] MEDS: Carvedilol 3.125 MG TAB PO SCH (21:14)
[2017-05-10] MEDS: Famotidine 20 MG TAB PO SCH (21:14)
[2017-05-10] MEDS: HYDROcodone/Acetaminophen 5/325 mg Tablet PO PRN (21:14)
[2017-05-11] MEDS: Ketorolac Tromethamine 30 MG/ML VIAL IVP SCH ×4 (06:16→23:44)
[2017-05-11] MEDS: Insulin Regular 300 UNITS/3 ML VIAL SC PRN ×3 (07:34→22:10)
[2017-05-11] MEDS: Famotidine 20 MG TAB PO SCH ×2 (07:35→21:18)
[2017-05-11] MEDS: Furosemide 40 MG TAB PO SCH (07:35)
[2017-05-11] MEDS: Potassium Chloride 20 MEQ TAB PO SCH (07:35)
[2017-05-11] MEDS: Carvedilol 3.125 MG TAB PO SCH (07:35)
[2017-05-11] MEDS: Aspirin 325 mg Enteric Coated Tablet PO SCH (07:35)
[2017-05-11] MEDS ORDERED: Carvedilol 3.125 MG TAB PO SCH (08:06)
[2017-05-11] MEDS: Carvedilol 6.25 MG TAB PO SCH ×2 (08:21→21:19)
--- NOTE | 2017-05-11 11:45 | PDOC.PN ---
- Subjective Encounter Start Date: 05/11/17 Encounter Start Time: 10:30 Pt seen and exmained on rounds, chart reviewed in its entirety. This is my first visit with this patient. CP to chest wall on right, some SOB, worse with exertion. Up walking in hallway three times already today. Deneis F/C, no n/V/D, no BM since admit. No new complaints, denies needs or acute overnight events. at bedside, questions answered 10 point ROS performed and neg for all systems except as above - Objective Resuscitation Status: Resuscitation Status FULL:Full Resuscitation MAR Reviewed: Yes Vital Signs & Weight: Vital Signs (12 hours) Temp Pulse Resp BP BP Pulse Ox 05/11/17 07:30 99.0 F 98 16 94 L 05/11/17 07:28 99.0 F 98 16 107/57 L 94 L 05/11/17 04:00 98.0 F 87 18 112/58 L 92 L Weight Weight 181 lb 12.8 oz Most Recent Monitor Data Heart Rate from ECG 101 NIBP 99/47 NIBP BP-Mean 77 Respiration from ECG 10 SpO2 96 I&O: 05/10/17 05/11/17 05/12/17 06:59 06:59 06:59 Intake Total 1223.9 1424 Output Total 2060 350 Balance -836.1 1074 Result Diagrams: 05/10/17 04:30 05/10/17 04:30 Additional Labs: Accuchecks 05/11/17 05/10/17 05/10/17 06:05 20:14 16:43 POC Glucose 189 H 249 H 178 H 05/10/17 12:22 POC Glucose 124 H Radiology Reviewed by me: Yes EKG Reviewed by me: Yes Phys Exam - Physical Examination Constitutional: NAD HEENT: PERRLA, moist MMs, sclera anicteric, oral pharynx no lesions Neck: no nodes, no JVD, supple, full ROM Respiratory: no wheezing, no rales, no rhonchi, clear to auscultation bilateral Cardiovascular: RRR, no significant murmur, no rub Gastrointestinal: soft, non-tender, no distention, positive bowel sounds Musculoskeletal: no edema, pulses present Neurological: non-focal, normal sensation, moves all 4 limbs Lymphatic: no nodes Psychiatric: normal affect, A&O x 3 Skin: no rash, normal turgor, cap refill <2 seconds Deviation from normal: sternotomy incision intact and dry, no drianage, slightly purplish in color Dx/Plan (1) S/P CABG (coronary artery bypass graft) Code(s): Z95.1 - PRESENCE OF AORTOCORONARY BYPASS GRAFT Status: Acute (2) Diabetes mellitus type 2 in obese Code(s): E11.69 - TYPE 2 DIABETES MELLITUS WITH OTHER SPECIFIED COMPLICATION; E66.9 - OBESITY, UNSPECIFIED Status: Chronic (3) Hypertension Code(s): I10 - ESSENTIAL (PRIMARY) HYPERTENSION Status: Chronic Qualifiers: Hypertension type: essential hypertension Qualified Code(s): I10 - Essential (primary) hypertension (4) NSTEMI (non-ST elevated myocardial infarction) Code(s): I21.4 - NON-ST ELEVATION (NSTEMI) MYOCARDIAL INFARCTION Status: Resolved - Plan cont current plan of care, PT/OT, incentive spirometry * .
--- NOTE | 2017-05-11 14:24 | PDOC.CTH ---
Cardiology Progress Note - Subjective Doing well. Tolerating increased activity today. Transferred to telemetry. ROS otherwise negative. - Objective Vital Signs Temp Pulse Resp BP BP Pulse Ox 05/11/17 12:00 98.4 F 101 H 18 100/54 L 93 L 05/11/17 07:30 99.0 F 98 16 94 L 05/11/17 07:28 99.0 F 98 16 107/57 L 94 L 05/11/17 04:00 98.0 F 87 18 112/58 L 92 L Weight 181 lb 12.8 oz 05/10/17 05/11/17 05/12/17 06:59 06:59 06:59 Intake Total 1223.9 1424 Output Total 2060 350 Balance -836.1 1074 - Physical Examination General/Neuro: alert & oriented x3, NAD Neck: carotid US brisk, no JVD present Lungs: CTA, unlabored respirations Heart: PMI normal, RRR Abdomen: no HSM, NT/ND, soft Extremities: other: (2+ pulses, no edema) Other PE findings: Neuro: no focal motor defs - Telemetry Telemetry Rhythm: sinus rhythm - Labs Result Diagrams: 05/10/17 04:30 05/10/17 04:30 Troponin/CKMB CK-MB (CK-2) 6.2 ng/mL (0-6.6) 05/06/17 15:15 Troponin I 1.660 ng/mL (< 0.028) H* 05/07/17 07:06 - Assessment/Plan 1. CAD, s/p NSTEMI: CABG postop day #2. Continue routine postop care. Increase activity as tolerated, IS. Recovering well. 2. HTN: controlled. Continue medical management. 3. dyslipidemia: statin recommended for life.
[2017-05-11] MEDS ORDERED: FLU VACC TS2017-18 (>65YR) 0.5 ML SYRINGE IM ONE (21:00)
[2017-05-12] MEDS: Ketorolac Tromethamine 30 MG/ML VIAL IVP SCH ×3 (05:33→18:19)
[2017-05-12 05:39] LABS: #Eosinphils 0.3 thou/uL (0.0-0.7); #Lymphocytes 2.1 thou/uL (1.20-3.40); #Monocytes 0.7 thou/uL (0.11-0.59); #Neutrophils 7.2 thou/uL (1.40-6.50); %Basophils 0.3 % (0.0-1.0); Mean Platelet Volume 7.9 fL (7.4-10.4); Red Blood Cell (RBC) Count 3.09 mill/uL (4.20-5.40); White Blood Cell (WBC) Count 10.4 thou/uL (4.8-10.8)
[2017-05-12 05:53] LABS: Anion Gap 9 mmol/L (10-20); BUN (Urea Nitrogen) 18 mg/dL (9.8-20.1); Calc. Creatinine Clearance 75 mL/min (70-130); Calcium 8.8 mg/dL (7.8-10.44); Carbon Dioxide 25 mmol/L (23-31); Chloride 109 mmol/L (98-107); Estimated GFR-MDRD 66; Magnesium 1.9 mg/dL (1.6-2.6)
[2017-05-12] MEDS: Insulin Regular 300 UNITS/3 ML VIAL SC PRN ×4 (06:29→22:46)
--- NOTE | 2017-05-12 06:45 | EKG ---
Test Reason : S/P CABG Blood Pressure : / mmHG Vent. Rate : 079 BPM Atrial Rate : 079 BPM P-R Int : 156 ms QRS Dur : 088 ms QT Int : 418 ms P-R-T Axes : 058 045 043 degrees QTc Int : 479 ms Normal sinus rhythm T wave abnormality, consider anterior ischemia Prolonged QT Abnormal ECG When compared with ECG of 06-MAY-2017 15:02, (Unconfirmed) No significant change was found Confirmed by DARIN RICO ([id number]) on 05/12/2017 6:44:38 AM Referred By: HARRIET Confirmed By:DARIN RICO
[2017-05-12] MEDS ORDERED: FLU VACC TS2017-18 (>65YR) 0.5 ML SYRINGE IM ONE (09:00)
[2017-05-12] MEDS: Famotidine 20 MG TAB PO SCH ×2 (09:49→21:17)
[2017-05-12] MEDS: Aspirin 325 mg Enteric Coated Tablet PO SCH (09:50)
[2017-05-12] MEDS: Furosemide 40 MG TAB PO SCH (09:50)
[2017-05-12] MEDS: Carvedilol 6.25 MG TAB PO SCH ×2 (09:51→21:17)
[2017-05-12] MEDS: Potassium Chloride 20 MEQ TAB PO SCH (09:52)
--- NOTE | 2017-05-12 11:05 | PDOC.PN ---
- Subjective Encounter Start Date: 05/12/17 Encounter Start Time: 07:40 Pt seen for followup re: NSTEMI. says she feels better. Denies chest pain, shortness of breath, fevers or chills. - Objective Resuscitation Status: Resuscitation Status FULL:Full Resuscitation MAR Reviewed: Yes Vital Signs & Weight: Vital Signs (12 hours) Temp Pulse Resp BP BP BP Pulse Ox 05/12/17 09:51 133/64 05/12/17 08:20 97.9 F 92 20 133/64 92 L 05/12/17 08:00 97.9 F 92 20 92 L 05/12/17 04:00 98.5 F 89 18 135/64 93 L 05/12/17 00:05 98.9 F 92 18 116/60 93 L Weight Weight 184 lb 14.4 oz Most Recent Monitor Data Heart Rate from ECG 101 NIBP 99/47 NIBP BP-Mean 77 Respiration from ECG 10 SpO2 96 I&O: 05/11/17 05/12/17 05/13/17 06:59 06:59 06:59 Intake Total 1424 1670 Output Total 350 1200 Balance 1074 470 Result Diagrams: 05/12/17 05:21 05/12/17 05:21 Additional Labs: Accuchecks 05/12/17 05/12/17 05/11/17 10:15 06:07 20:11 POC Glucose 280 H 204 H 303 H 05/11/17 05/11/17 17:12 11:13 POC Glucose 149 H 223 H EKG Reviewed by me: Yes (Tele: NSR) Phys Exam - Physical Examination Constitutional: NAD HEENT: moist MMs, oral pharynx no lesions Neck: supple Respiratory: no wheezing, no rales, no rhonchi, clear to auscultation bilateral Cardiovascular: RRR, no rub Gastrointestinal: soft, positive bowel sounds Musculoskeletal: pulses present Neurological: non-focal, moves all 4 limbs Psychiatric: normal affect Skin: no rash Dx/Plan (1) NSTEMI (non-ST elevated myocardial infarction) Code(s): I21.4 - NON-ST ELEVATION (NSTEMI) MYOCARDIAL INFARCTION Status: Acute (2) S/P CABG (coronary artery bypass graft) Code(s): Z95.1 - PRESENCE OF AORTOCORONARY BYPASS GRAFT Status: Acute (3) Diabetes mellitus type 2 in obese Code(s): E11.69 - TYPE 2 DIABETES MELLITUS WITH OTHER SPECIFIED COMPLICATION; E66.9 - OBESITY, UNSPECIFIED Status: Chronic (4) Hypertension Code(s): I10 - ESSENTIAL (PRIMARY) HYPERTENSION Status: Chronic Qualifiers: Hypertension type: essential hypertension Qualified Code(s): I10 - Essential (primary) hypertension - Plan PT/OT, DVT proph w/SCDs * . Continue aspirin, statin, beta bo. Likely home 1-2 days. Review of Systems - Review of Systems Constitutional: Other. negative: Fever, Chills, Sweats, Weakness, Malaise Respiratory: negative: Cough, Dry, Shortness of Breath, Hemoptysis, SOB with Excertion, Pleuritic Pain, Sputum, Wheezing Cardiovascular: negative: Chest Pain, Palpitations, Orthopnea, Paroxysmal Noc. Dyspnea, Edema, Light Headedness - Medications/Allergies Allergies/Adverse Reactions: Allergies Allergy/AdvReac Type Severity Reaction Status Date / Time codeine Allergy Verified 05/06/17 18:25 gabapentin Allergy Verified 05/06/17 18:25 Penicillins Allergy Verified 05/06/17 18:25 simvastatin Allergy Rash Verified 05/11/17 17:01 Sulfa (Sulfonamide Allergy Verified 05/06/17 18:25 Antibiotics) tramadol Allergy Verified 05/06/17 18:25 Medications: Current Medications Acetaminophen (Tylenol) 650 mg PO Q6H PRN PRN Reason: Headache/Fever or Pain Hydrocodone Bitart/Acetaminophen (Sycamore 5/325) 1 tab PO Q4H PRN PRN Reason: Moderate Pain (4-6) Last Admin: 05/11/17 10:46 Dose: 1 tab Hydrocodone Bitart/Acetaminophen (Sycamore 5/325) 2 tab PO Q4H PRN PRN Reason: Severe Pain (7-10) Last Admin: 05/10/17 21:14 Dose: 2 tab Al Hydroxide/Mg Hydroxide (Maalox) 30 ml PO Q4H PRN PRN Reason: Indigestion Albuterol/Ipratropium (Duoneb) 3 ml NEB [id number] PRN PRN Reason: Respiratory Distress Artificial Tears (Tears Naturale) 0 drop EA EYE PRN PRN PRN Reason: Dry Eyes Aspirin (Ecotrin) 325 mg PO DAILY JESSICA Last Admin: 05/12/17 09:50 Dose: 325 mg Bisacodyl (Dulcolax) 10 mg PO Q12H PRN PRN Reason: Constipation Bisacodyl (Dulcolax) 10 mg OH Q12H PRN PRN Reason: Constipation Carvedilol (Coreg) 12.5 mg PO BID [facility] Last Admin: 05/12/17 09:51 Dose: 12.5 mg Dextrose/Water (Dextrose 50%) 25 gm SLOW IVP PRN PRN PRN Reason: PER HYPOGLYCEMIC PROTOCOL Diphenhydramine HCl (Benadryl) 25 mg PO Q6H PRN PRN Reason: Itching & Insomnia or Long Chris Famotidine (Pepcid) 20 mg PO BID [facility] Last Admin: 05/12/17 09:49 Dose: 20 mg Fentanyl (Sublimaze) 25 mcg SLOW IVP Q2H PRN PRN Reason: Moderate breakthrough pain Last Admin: 05/10/17 16:32 Dose: 25 mcg Fentanyl (Sublimaze) 50 mcg SLOW IVP Q2H PRN PRN Reason: Severe breakthrough pain Furosemide (Lasix) 40 mg PO DAILY [facility] Last Admin: 05/12/17 09:50 Dose: 40 mg Glucagon (Glucagon) 1 mg SC PRN PRN PRN Reason: PER HYPOGLYCEMIC PROTOCOL Guaifenesin/Dextromethorphan (Robitussin Dm) 15 ml PO Q4H PRN PRN Reason: Cough Hydralazine HCl (Apresoline) 10 mg SLOW IVP Q6H PRN PRN Reason: To Maintain SBP< 140mmHG Dextrose/Water (D5w) 1,000 mls @ 0 mls/hr IV INF PRN; As Directed PRN Reason: PRN HYPOGLYCEMIC PROTOCOL Insulin Human Regular (Humulin R) 0 units SC Q4H PRN; Protocol PRN Reason: POST OP SLIDING SCALE Last Admin: 05/12/17 06:29 Dose: 6 unit Ketorolac Tromethamine (Toradol) 30 mg IVP Q6HR [facility] Stop: 05/12/17 18:01 Last Admin: 05/12/17 05:33 Dose: 30 mg Magnesium Hydroxide (Milk Of Magnesium) 30 ml PO Q12H PRN PRN Reason: Constipation Mineral Oil (Fleet Mineral Oil) 133 ml OH DAILYPRN PRN PRN Reason: Constipation Nitroglycerin (Nitrostat) 0.4 mg SL Q5MIN PRN PRN Reason: Chest Pain Ondansetron HCl (Zofran) 4 mg IVP Q6H PRN PRN Reason: Nausea/Vomiting Potassium Chloride (K-Dur) 20 meq PO QAM-[facility] Last Admin: 05/12/17 09:52 Dose: 20 meq Promethazine HCl (Phenergan) 6.25 mg IM Q4H PRN PRN Reason: Nausea/Vomiting Rosuvastatin Calcium (Crestor) 10 mg PO DAILY [facility] Last Admin: 05/12/17 09:50 Dose: 10 mg Sodium Chloride (Flush - Normal Saline) 10 ml IVF PRN PRN PRN Reason: Saline Flush Last Admin: 05/12/17 05:35 Dose: 10 ml Zolpidem Tartrate (Ambien) 5 mg PO HSPRN PRN PRN Reason: Insomnia
--- NOTE | 2017-05-12 15:36 | PDOC.CTH ---
Cardiology Progress Note - Subjective No new issues. Doing well with increased activity. Tolerating meds. Plans for home tomorrow noted. Discussed follow up routine. ROS negative. - Objective Vital Signs Temp Pulse Pulse Pulse Resp BP BP 05/12/17 12:51 95 90 121/60 05/12/17 09:51 133/64 05/12/17 08:26 94 91 138/63 05/12/17 08:20 97.9 F 92 20 05/12/17 08:00 97.9 F 92 20 05/12/17 04:00 98.5 F 89 18 BP BP BP Pulse Ox Pulse Ox Pulse Ox 05/12/17 12:51 102/55 L 94 L 91 L 05/12/17 09:51 05/12/17 08:26 127/60 94 L 90 L 05/12/17 08:20 133/64 92 L 05/12/17 08:00 92 L 05/12/17 04:00 135/64 93 L Weight 184 lb 14.4 oz 05/11/17 05/12/17 05/13/17 06:59 06:59 06:59 Intake Total 1424 1670 Output Total 350 1200 Balance 1074 470 - Physical Examination General/Neuro: alert & oriented x3, NAD Neck: carotid US brisk, no JVD present Lungs: CTA, unlabored respirations Heart: PMI normal, RRR Abdomen: no HSM, NT/ND, soft Extremities: other: (2+ pulses, no edema) Other PE findings: Neuro: no focal motor defs - Telemetry Telemetry Rhythm: sinus rhythm - Labs Result Diagrams: 05/12/17 05:21 05/12/17 05:21 Troponin/CKMB CK-MB (CK-2) 6.2 ng/mL (0-6.6) 05/06/17 15:15 Troponin I 1.660 ng/mL (< 0.028) H* 05/07/17 07:06 - Assessment/Plan 1. CAD, s/p NSTEMI: CABG postop day #3. Recovering well. Anticipate home tomorrow. Follow up with me in 3-4 weeks. 2. HTN: controlled. Continue medical management. 3. dyslipidemia: statin recommended for life.
[2017-05-13] MEDS ORDERED: Carvedilol 6.25 MG TAB PO SCH (07:55)
[2017-05-13] MEDS: Potassium Chloride 20 MEQ TAB PO SCH (08:03)
[2017-05-13] MEDS: Famotidine 20 MG TAB PO SCH ×2 (08:03→21:34)
[2017-05-13] MEDS: Aspirin 325 mg Enteric Coated Tablet PO SCH (08:03)
[2017-05-13] MEDS: Furosemide 40 MG TAB PO SCH (08:04)
[2017-05-13] MEDS: Insulin Regular 300 UNITS/3 ML VIAL SC PRN ×3 (08:04→17:48)
[2017-05-13] MEDS: HYDROcodone/Acetaminophen 5/325 mg Tablet PO PRN (08:51)
[2017-05-13] MEDS ORDERED: Carvedilol 25 MG TAB PO SCH (09:00)
--- NOTE | 2017-05-13 12:21 | PDOC.EVN ---
Event Note - Event Note Event Note: Pt is being discharged home. Discussed side effects of aspirin (GI bleed, black stools, stomach irritation etc.), statin (abnormal liver enzymes, liver inflammation, muscle weakness/pains etc.), beta bo (light-headedness, hypotension etc.). Pt and daughter expressed understanding, will seek PCP{ assistance for any side effects).
--- NOTE | 2017-05-13 12:46 | DIS ---
DATE OF ADMISSION: 05/06/2017 DATE OF DISCHARGE: 05/13/2017 PRIMARY CARE PHYSICIAN: Sudhir Coe MD DISCHARGE DIAGNOSES: 1. Non-ST elevation myocardial infarction. 2. Coronary angiogram showing left anterior descending critically diseased involving the origin of two large diagonal branch vessels. 3. A 2-D echocardiogram on 05/07/2017, showing left ventricle systolic function at 50% to 55%, mild anterior apical hypokinesis, trace mitral regurgitation, and mild aortic regurgitation. 4. Coronary artery bypass graft x2 with left internal mammary artery to left anterior descending an d reversed greater saphenous vein to diagonal on 05/09/2017. CONDITION OF PATIENT AT THE TIME OF DISCHARGE: Stable. I assessed Ms. Person on the day of disch arge. She denies any chest pain or shortness of breath. PHYSICAL EXAMINATION: VITAL SIGNS: Stable. HEART: S1 and S2 are heard, regular. LUNGS: Clear to auscultation bilaterally. DISCHARGE MEDICATIONS: Aspirin 325 mg daily, Coreg 25 mg 2 times a day, glimepiride 2 mg at bedtime , Girard p.r.n. as prescribed by Cardiovascular Surgery, loperamide p.r.n., losartan 50 mg daily, mul tivitamins 1 tablet daily, Crestor 10 mg daily, metformin 500 mg 2 times a day, Januvia 50 mg daily. HOSPITAL COURSE: Ms. Person is a pleasant 76-year-old lady who was admitted to [facility] on 05/06/2017 for an acute coronary syndrome. She was seen by Cardiology Service. She underwent a cardiac catheterization and a 2D echocardiogram, with the results summarized above. She went on to have coronary artery bypass graft. She continued to do well clinically, and is bein g discharged home in a stable condition. Please note that she had elevated blood sugars during this hospitalization. She received insulin by sliding scale. She does not wish to continue insulin at home if possible. I have advised her to c heck her blood sugars 3 times a day and shows readings to her primary care physician. For now, she is being discharged home on oral antidiabetic agents. Many thanks for allowing me to participate in your patient's care. Please feel free to contact me w ith any questions or concerns. FOLLOWUP APPOINTMENTS: She is advised to follow up with her primary care provider in 3 days' time. She also has a followup appointment with cardiac rehabilitation on 05/19/2017 at 9:00 a.m. DISCHARGE DESTINATION: Home. TOTAL AMOUNT OF TIME SPENT COORDINATING THIS DISCHARGE: Thirty-three minutes.
--- NOTE | 2017-05-13 15:09 | PDOC.PN ---
- Subjective Encounter Start Date: 05/13/17 Encounter Start Time: 02:00 Pt seen for followup re: ? seizure. [id number] weakness, diaphoresis. No chest pain or shortness of breath. - Objective Resuscitation Status: Resuscitation Status FULL:Full Resuscitation MAR Reviewed: Yes Vital Signs & Weight: Vital Signs (12 hours) Temp Pulse Pulse Pulse Resp BP BP 05/13/17 11:32 99.2 F 84 16 05/13/17 09:14 90 85 140/64 125/64 05/13/17 08:00 99.0 F 94 16 05/13/17 07:57 99.0 F 94 16 05/13/17 04:15 99.0 F 82 16 BP BP Pulse Ox Pulse Ox Pulse Ox 05/13/17 11:32 104/51 L 91 L 05/13/17 09:14 90 L 92 L 05/13/17 08:00 93 L 05/13/17 07:57 136/62 93 L 05/13/17 04:15 127/63 92 L Weight Weight 184 lb 8 oz Most Recent Monitor Data Heart Rate from ECG 101 NIBP 99/47 NIBP BP-Mean 77 Respiration from ECG 10 SpO2 96 I&O: 05/12/17 05/13/17 05/14/17 06:59 06:59 06:59 Intake Total 1670 240 Output Total 1200 100 Balance 470 140 Result Diagrams: 05/12/17 05:21 05/12/17 05:21 Additional Labs: Accuchecks 05/13/17 05/13/17 05/13/17 12:46 11:16 07:04 POC Glucose 190 H 244 H 225 H 05/12/17 05/12/17 20:55 16:18 POC Glucose 203 H 246 H EKG Reviewed by me: Yes (Tele: NSR) Phys Exam - Physical Examination Diaphoretic HEENT: moist MMs, oral pharynx no lesions Neck: supple Respiratory: no wheezing, no rales, no rhonchi, clear to auscultation bilateral Cardiovascular: RRR Gastrointestinal: soft Neurological: moves all 4 limbs Deviation from normal: anxious Skin: no rash Dx/Plan (1) Seizure Code(s): R56.9 - UNSPECIFIED CONVULSIONS Status: Acute (2) NSTEMI (non-ST elevated myocardial infarction) Code(s): I21.4 - NON-ST ELEVATION (NSTEMI) MYOCARDIAL INFARCTION Status: Acute (3) S/P CABG (coronary artery bypass graft) Code(s): Z95.1 - PRESENCE OF AORTOCORONARY BYPASS GRAFT Status: Acute (4) Diabetes mellitus type 2 in obese Code(s): E11.69 - TYPE 2 DIABETES MELLITUS WITH OTHER SPECIFIED COMPLICATION; E66.9 - OBESITY, UNSPECIFIED Status: Chronic (5) Hypertension Code(s): I10 - ESSENTIAL (PRIMARY) HYPERTENSION Status: Chronic Qualifiers: Hypertension type: essential hypertension Qualified Code(s): I10 - Essential (primary) hypertension - Plan * . Pt went to the bathroom, felt woozy, diaphoretic. Dtr reports shaking movements of extremities. Pt reported that this has happened in the past as well, reports she had vasovagal episodes. Will await CT brain report. No further seizures. If stable, likely home tomorrow. Review of Systems - Review of Systems Constitutional: Sweats, Weakness. negative: Fever, Chills, Malaise Respiratory: negative: Cough, Dry, Shortness of Breath, Hemoptysis, SOB with Excertion, Pleuritic Pain, Sputum, Wheezing Cardiovascular: negative: Chest Pain, Palpitations, Orthopnea, Paroxysmal Noc. Dyspnea, Edema, Light Headedness Gastrointestinal: negative: Nausea, Vomiting, Abdominal Pain, Diarrhea, Constipation, Melena, Hematochezia - Medications/Allergies Allergies/Adverse Reactions: Allergies Allergy/AdvReac Type Severity Reaction Status Date / Time codeine Allergy Verified 05/06/17 18:25 gabapentin Allergy Verified 05/06/17 18:25 Penicillins Allergy Verified 05/06/17 18:25 simvastatin Allergy Rash Verified 05/11/17 17:01 Sulfa (Sulfonamide Allergy Verified 05/06/17 18:25 Antibiotics) tramadol Allergy Verified 05/06/17 18:25 Medications: Current Medications Acetaminophen (Tylenol) 650 mg PO Q6H PRN PRN Reason: Headache/Fever or Pain Hydrocodone Bitart/Acetaminophen ([place] 5/325) 1 tab PO Q4H PRN PRN Reason: Moderate Pain (4-6) Last Admin: 05/11/17 10:46 Dose: 1 tab Hydrocodone Bitart/Acetaminophen ([place] 5/325) 2 tab PO Q4H PRN PRN Reason: Severe Pain (7-10) Last Admin: 05/13/17 08:51 Dose: 2 tab Al Hydroxide/Mg Hydroxide (Maalox) 30 ml PO Q4H PRN PRN Reason: Indigestion Albuterol/Ipratropium (Duoneb) 3 ml NEB [id number] PRN PRN Reason: Respiratory Distress Artificial Tears (Tears Naturale) 0 drop EA EYE PRN PRN PRN Reason: Dry Eyes Aspirin (Ecotrin) 325 mg PO DAILY [facility] Last Admin: 05/13/17 08:03 Dose: 325 mg Bisacodyl (Dulcolax) 10 mg PO Q12H PRN PRN Reason: Constipation Bisacodyl (Dulcolax) 10 mg NC Q12H PRN PRN Reason: Constipation Carvedilol (Coreg) 25 mg PO BID [facility] Last Admin: 05/13/17 08:10 Dose: 25 mg Dextrose/Water (Dextrose 50%) 25 gm SLOW IVP PRN PRN PRN Reason: PER HYPOGLYCEMIC PROTOCOL Diphenhydramine HCl (Benadryl) 25 mg PO Q6H PRN PRN Reason: Itching & Insomnia or Long Chris Famotidine (Pepcid) 20 mg PO BID [facility] Last Admin: 05/13/17 08:03 Dose: 20 mg Fentanyl (Sublimaze) 25 mcg SLOW IVP Q2H PRN PRN Reason: Moderate breakthrough pain Last Admin: 05/10/17 16:32 Dose: 25 mcg Fentanyl (Sublimaze) 50 mcg SLOW IVP Q2H PRN PRN Reason: Severe breakthrough pain Furosemide (Lasix) 40 mg PO DAILY [facility] Last Admin: 05/13/17 08:04 Dose: 40 mg Glucagon (Glucagon) 1 mg SC PRN PRN PRN Reason: PER HYPOGLYCEMIC PROTOCOL Guaifenesin/Dextromethorphan (Robitussin Dm) 15 ml PO Q4H PRN PRN Reason: Cough Hydralazine HCl (Apresoline) 10 mg SLOW IVP Q6H PRN PRN Reason: To Maintain SBP< 140mmHG Dextrose/Water (D5w) 1,000 mls @ 0 mls/hr IV INF PRN; As Directed PRN Reason: PRN HYPOGLYCEMIC PROTOCOL Insulin Human Regular (Humulin R) 0 units SC Q4H PRN; Protocol PRN Reason: POST OP SLIDING SCALE Last Admin: 05/13/17 12:30 Dose: 6 unit Magnesium Hydroxide (Milk Of Magnesium) 30 ml PO Q12H PRN PRN Reason: Constipation Mineral Oil (Fleet Mineral Oil) 133 ml NC DAILYPRN PRN PRN Reason: Constipation Nitroglycerin (Nitrostat) 0.4 mg SL Q5MIN PRN PRN Reason: Chest Pain Ondansetron HCl (Zofran) 4 mg IVP Q6H PRN PRN Reason: Nausea/Vomiting Potassium Chloride (K-Dur) 20 meq PO QA-[facility] Last Admin: 05/13/17 08:03 Dose: 20 meq Promethazine HCl (Phenergan) 6.25 mg IM Q4H PRN PRN Reason: Nausea/Vomiting Rosuvastatin Calcium (Crestor) 10 mg PO DAILY [facility] Last Admin: 05/13/17 08:04 Dose: 10 mg Sodium Chloride (Flush - Normal Saline) 10 ml IVF PRN PRN PRN Reason: Saline Flush Last Admin: 05/12/17 05:35 Dose: 10 ml Zolpidem Tartrate (Ambien) 5 mg PO HSPRN PRN PRN Reason: Insomnia
[2017-05-13] MEDS: Bisacodyl 5 MG TAB PO PRN (15:53)
--- NOTE | 2017-05-13 16:03 | CT ---
CT BRAIN 05/13/17 HISTORY: Syncope. Noncontrast enhanced CT images of the brain demonstrate diffuse cortical atrophy and deep white ollie er ischemic changes. No evidence of intracranial masses, hemorrhage, strokes or contusions seen. Al tricles are of normal size. IMPRESSION: Normal CT brain with no evidence of acute intracranial pathology seen. POS: [facility]
[2017-05-13] MEDS: Guaifenesin DM 100-10/5 ML UDCUP PO PRN (17:58)
[2017-05-13] MEDS: Carvedilol 25 MG TAB PO SCH (21:34)
[2017-05-14] MEDS: Guaifenesin DM 100-10/5 ML UDCUP PO PRN (05:56)
[2017-05-14] MEDS: Bisacodyl 5 MG TAB PO PRN (05:57)
[2017-05-14] MEDS: Famotidine 20 MG TAB PO SCH (08:58)
[2017-05-14] MEDS: Carvedilol 25 MG TAB PO SCH (08:58)
[2017-05-14] MEDS: Aspirin 325 mg Enteric Coated Tablet PO SCH (08:58)
[2017-05-14] MEDS: Potassium Chloride 20 MEQ TAB PO SCH (08:58)
[2017-05-14] MEDS: Furosemide 40 MG TAB PO SCH (08:59)
--- NOTE | 2017-05-14 12:26 | ADD-DIS ---
DATE OF ADMISSION: 05/06/2017 DATE OF DISCHARGE: 05/14/2017 PRIMARY CARE PHYSICIAN: Sudhir Coe M.D. Please note that this discharge summary is an addendum to the discharge summary I dictated on 2016. Ms. Person was not discharged that day because of a vasovagal episode. DISCHARGE DIAGNOSES: 1. Non-ST elevation myocardial infarction. 2. Left anterior descending artery lesions on coronary angiogram. 3. Coronary artery bypass graft x2. CONDITION OF PATIENT AT THE TIME OF DISCHARGE: Stable. I saw Ms. Person on the day of discharge. She denies any chest pain or shortness of breath. No further recurrence of vasovagal episodes. PHYSICAL EXAMINATION: VITAL SIGNS: Stable. HEART: S1 and S2 are heard, regular. LUNGS: Clear to auscultation bilaterally. DISCHARGE MEDICATIONS: Aspirin 325 mg daily, Coreg 25 mg 2 times a day, glimepiride 2 mg at bedtime , [place] as needed, loperamide as needed, losartan 50 mg daily, multivitamins 1 tablet daily, Crestor 10 mg daily, metformin 500 mg 2 times a day, and Januvia 50 mg daily. HOSPITAL COURSE: Ms. Person is a pleasant 76-year-old lady who was admitted to [facility] on 05/06/2017 for non-ST elevation myocardial infarction. She was seen by the [facility] ology Service and Cardiovascular Services during this hospitalization. She underwent a cardiac cath eterization, 2D echocardiogram and subsequently coronary artery bypass graft. She is being discharg ed home in a stable condition. Because of hypoglycemia during this hospitalization, she has been advised to monitor her blood sugar s and showed the readings to her primary care physician. She is being discharged home on oral antid iabetic agents. She reports that she is not very keen on starting insulin. She may need additional antidiabetic agents, depending on how her blood sugars are at home. Many thanks for allowing me to participate in your patient's care. Please feel free to contact me w ith any questions or concerns. FOLLOWUP APPOINTMENT: Cardiac rehabilitation on 05/19/2017 at 9 a.m., primary care provider in 3 da ys time. CONSULTATIONS DURING THIS HOSPITALIZATION: Cardiology, Dr. Javier Charles and Cardiovascular Surgery, Dr. Jeremy Mancilla. DISCHARGE DESTINATION: Home. TOTAL AMOUNT OF TIME SPENT COORDINATING THIS DISCHARGE: 32 minutes.
--- NOTE | 2017-05-14 13:16 | EKG ---
Test Reason : Blood Pressure : / mmHG Vent. Rate : 107 BPM Atrial Rate : 107 BPM P-R Int : 132 ms QRS Dur : 078 ms QT Int : 352 ms P-R-T Axes : 050 016 060 degrees QTc Int : 469 ms Sinus tachycardia Nonspecific T wave abnormality Abnormal ECG Confirmed by SHAINA NOLASCO D.O. ([id number]), rewrite editor IGNACIA EPSTEIN ([id number]) on 05/14/2017 1:16:08 PM Referred By: Confirmed By:SHAINA NOLASCO D.O.
[2017-05-14 13:20] VITALS: BP 125/59; TEMP 98.7
== END 2017-05-14 15:07 | disposition home or self-care (01) | DRG 234 ==
LOC: ERS 14:47 → 2NO 16:42 → CCU 05-09 10:25 → 2NO 05-10 15:17
PROVIDERS: ADMIT Internal Medicine; ATTEND Internal Medicine
PROC: 4A023N7 Measurement of Cardiac Sampling and Pressure, Left Heart, Percutaneous Approach (ICD-10-PCS; principal; 2017-05-07)
PROC: B2111ZZ Fluoroscopy of Multiple Coronary Arteries using Low Osmolar Contrast (ICD-10-PCS; 2017-05-07)
PROC: B2151ZZ Fluoroscopy of Left Heart using Low Osmolar Contrast (ICD-10-PCS; 2017-05-07)
PROC: 02100Z9 Bypass Coronary Artery, One Artery from Left Internal Mammary, Open Approach (ICD-10-PCS; 2017-05-09)
PROC: 021009W Bypass Coronary Artery, One Artery from Aorta with Autologous Venous Tissue, Open Approach (ICD-10-PCS; 2017-05-09)
PROC: 06BQ0ZZ Excision of Left Saphenous Vein, Open Approach (ICD-10-PCS; 2017-05-09)
DX: I21.4 Non-ST elevation (NSTEMI) myocardial infarction (principal); E11.649 Type 2 diabetes mellitus with hypoglycemia without coma; I10 Essential (primary) hypertension; I25.10 Atherosclerotic heart disease of native coronary artery without angina pectoris; E78.5 Hyperlipidemia, unspecified; R55 Syncope and collapse; Z79.84 Long term (current) use of oral hypoglycemic drugs; E66.9 Obesity, unspecified; Z68.29 Body mass index [BMI] 29.0-29.9, adult; F41.9 Anxiety disorder, unspecified; M19.90 Unspecified osteoarthritis, unspecified site; Z88.5 Allergy status to narcotic agent; Z88.0 Allergy status to penicillin; Z88.8 Allergy status to other drugs, medicaments and biological substances
CPT/HCPCS: 36415; 36416; 70450; 71010; 71275; 80048; 80053; 80061; 82553; 82805; 83690; 83735; 84484; 85025; 85379; 85610; 85730; 86850; 86870; 86900; 86901; 86921; 90471; 90682; 93005; 93010; 93306; 93458; 93798; 94002; 94150; 94760; 96372; 99152; A4216; C1769; G0008; J1642; J1644; J1650; J1815; J1885; J1956; J2001; J2250; J2440; J2704; J3010; J3370; J3480; J7042; J7050; P9045; Q2036; S0028

== ENCOUNTER 2017-05-24 13:01 | Inpatient (IN) | payer MEDICARE, BC ==
[2017-05-24 13:30] LABS: #Eosinphils 0.6 thou/uL (0.0-0.7); #Lymphocytes 2.2 thou/uL (1.20-3.40); #Monocytes 0.9 thou/uL (0.11-0.59); #Neutrophils 11.4 thou/uL (1.40-6.50); %Basophils 0.3 % (0.0-1.0); %Eosinophils 3.8 % (0.0-10.0); %Lymphocytes 14.5 % (21.0-51.0); %Monocytes 5.9 % (0.0-10.0); Hematocrit 34.3 % (36.0-47.0); Mean Platelet Volume 7.1 fL (7.4-10.4); Red Blood Cell (RBC) Count 3.78 mill/uL (4.20-5.40); White Blood Cell (WBC) Count 15.1 thou/uL (4.8-10.8)
--- NOTE | 2017-05-24 13:59 | RAD ---
PORTABLE AP CHEST: Date: 05/24/17 HISTORY: Chest pain. Post CABG on 05/09/17. Syncopal episode this morning. COMPARISON: 05/10/17. FINDINGS: Lines and tubes have been removed. Postsurgical changes related to CABG are noted. The cardiac silho uette is magnified by projection. Pulmonary vasculature is within normal limits. There is slight jack nting of the left lateral costophrenic angle which may represent tiny left pleural effusion. There i s also suggestion of minimal atelectasis at the left lung base. No other interval change. IMPRESSION: Tiny left pleural effusion with minimal atelectasis at the left lung base. Lungs are otherwise clear . POS: [facility]
[2017-05-24 14:18] LABS: ALT (SGPT) 10 U/L (8-55); AST (SGOT) 13 U/L (5-34); Alkaline Phosphatase 86 U/L (40-150); Anion Gap 15 mmol/L (10-20); BUN (Urea Nitrogen) 16 mg/dL (9.8-20.1); Bilirubin, Total 0.6 mg/dL (0.2-1.2); CK (CPK) 22 U/L (29-168); Calc. Creatinine Clearance 0 mL/min (70-130); Carbon Dioxide 26 mmol/L (23-31); Chloride 102 mmol/L (98-107); Estimated GFR-MDRD 60; Globulin 3.6 g/dL (2.4-3.5); Lipase 35 U/L (8-78); Protein, Total 7.3 g/dL (6.0-8.3); Troponin I Less than 0.010 ng/mL (< 0.028)
[2017-05-24] MEDS ORDERED: HYDROcodone/Acetaminophen 5/325 mg Tablet PO PRN (16:21)
[2017-05-24] MEDS ORDERED: Loperamide HCl 2 MG CAP PO PRN ×2 (16:25→16:28)
[2017-05-24] MEDS ORDERED: Ondansetron HCl/PF 4 MG/2 ML Vial IVP PRN (16:28)
--- NOTE | 2017-05-24 16:28 | PDOC.EVN ---
Event Note - Event Note Event Note: H&P: 614181 Syncope and Collapse in the setting of CAD s/p CABG * CT head * Orthostatic VS * trend cardiac enzymes * ECHO * Carotid Dopplers * Urine cx * Blood cxs * Consult Cariology * fall precautions * PT/OT * check labs in AM DM * SSI * f/u accu checks HLD * continue statin HTN * monitor BP and HR closely Admit to telemetry.
[2017-05-24] MEDS ORDERED: Dextrose 5% in Water 1,000 ML IV PRN (16:32)
[2017-05-24] MEDS ORDERED: Dextrose 50% Abboject 50 ML SYRINGE SLOW IVP PRN (16:32)
--- NOTE | 2017-05-24 18:11 | CT ---
CT HEAD WITHOUT CONTRAST: 05/24/17 Multiple axial tomograms obtained through the head without IV enhancement. HISTORY: Syncope. COMPARISON: 05/13/17. There is cortical atrophy and chronic ischemic white matter changes which appear stable from the jenna or study. No evidence of acute mass, hemorrhage, or infarct. No interval change. IMPRESSION: No acute findings. POS: [facility]
--- NOTE | 2017-05-24 18:22 | ULT ---
BILATERAL CAROTID DUPLEX ULTRASOUND: 05/24/17 HISTORY: Syncope. TECHNIQUE: Charles scale ultrasound with color flow and spectral doppler imaging of the extracranial carotid artery system is performed bilaterally. FINDINGS: No significant plaque formation or intimal wall thickening is seen on either side. The peak systolic velocity in the right ICA measures 80 cm/s with an end diastolic velocity of 23 cm /s and systolic ratio of 0.80. The peak systolic velocity in the left ICA measures 84 cm/s with an end diastolic velocity of 25 cm/ s and systolic ratio of 0.77. Flow in both vertebral arteries remains antegrade. IMPRESSION: No evidence of hemodynamically significant stenosis. POS: [facility]
[2017-05-24 18:40] LABS: Troponin I Less than 0.010 ng/mL (< 0.028)
--- NOTE | 2017-05-24 19:20 | HP ---
DATE OF ADMISSION: 05/24/2017 at 4:43 p.m. CHIEF COMPLAINT: Syncope with collapse. HISTORY OF PRESENT ILLNESS: This is a very pleasant 76-year-old female who was recently admitted on 05/06/2017 and discharged on 05/14/2017 during which time she underwent a coronary artery bypass gr aft x2 for a left anterior descending artery lesion on the coronary angiogram as a consequence of castrejon ving an NSTEMI. She reports that today was her first day of cardiac rehab from 11:00 a.m. to noon a nd she had worked harder than she had since she was discharged from the hospital. After that appoin tment, she went to [email or web address] to purchase a birthday card with her and then after leaving [email or web address], she felt lightheaded and fell down and lost consciousness for no more than a few secon ds per bystanders. She did not hit her head per observers. She denies any loss of bowel or bladder function during the episodes and no shaking movements were observed such as seizure activity. REVIEW OF SYSTEMS: The patient currently denies any chest pain other than that associated with her incision site. She denies any shortness of breath, fevers, chills, headaches or blurry vision. PAST MEDICAL HISTORY: 1. Diabetes mellitus type 2. 2. Hyperlipidemia. 3. Hypertension. 4. Anxiety. 5. Degenerative joint disease. 6. Coronary artery disease status post recent 2-vessel CABG. PAST SURGICAL HISTORY: 1. Colonoscopy. 2. Hysterectomy. 3. Wrist surgery. 4. CABG as above. FAMILY HISTORY: Positive for diabetes mellitus, cerebrovascular disease, cancer and coronary artery disease. SOCIAL HISTORY: The patient denies any tobacco, alcohol or illicit drug use. ALLERGIES TO MEDICATIONS: Reviewed, please refer to chart for details. PHYSICAL EXAMINATION: VITAL SIGNS: Reviewed, please refer to chart for details. GENERAL: The patient was lying comfortably in bed when I entered the room in no acute distress. HEENT: Normocephalic, atraumatic. NECK: Supple, no rigidity. LYMPH NODES: No cervical or supraclavicular lymphadenopathy. CARDIOVASCULAR: S1 and S2 are audible with regular rate and rhythm. LUNGS: Clear to auscultation bilaterally with no wheezes, rales or rhonchi. ABDOMEN: Soft, nontender with positive bowel sounds. No guarding, rebound or rigidity. : No CVA tenderness bilaterally. No suprapubic tenderness either. MUSCULOSKELETAL: No calf tenderness bilaterally. No clubbing or cyanosis of the extremities. SKIN: She does have a well healing midline chest incision with no evidence of erythema, edema or dr aimisty, moist mucous membranes. PSYCHIATRIC: Appropriate, cooperative. NEUROLOGIC: Alert and oriented x3, answering questions appropriately with judgment intact. LABORATORY IMAGING: Reviewed. Please refer to chart for details. ASSESSMENT AND PLAN: 1. This is a 76-year-old female who presented with syncope and collapse in the setting of coronary artery disease, status post recent coronary artery bypass graft. We will check a head CT, orthosta tic vital signs, trend cardiac enzymes, check an echocardiogram, check carotid Dopplers, check a uri ne culture and blood cultures. We will consult Cardiology, place fall precautions and consult physi felipe therapy and occupational therapy. Labs will be checked in the morning. 2. Diabetes mellitus, sliding scale insulin will be implemented. Follow up Accu-Cheks a.c. and at bedtime. 3. Hyperlipidemia. Continue statin. 4. Hypertension. Monitor blood pressure and heart rate closely. 5. Admit to telemetry.
[2017-05-24] MEDS ORDERED: Sodium Chloride 0.9% 10 ML ONE (20:25)
[2017-05-24] MEDS: Carvedilol 25 MG TAB PO SCH (21:10)
[2017-05-24] MEDS: Famotidine/PF 20 mg/2ml Vial SLOW IVP SCH (21:10)
[2017-05-24 21:21] LABS: Troponin I Less than 0.010 ng/mL (< 0.028)
[2017-05-25 01:02] LABS: Troponin I Less than 0.010 ng/mL (< 0.028)
[2017-05-25] MEDS: HYDROcodone/Acetaminophen 5/325 mg Tablet PO PRN ×5 (01:51→23:16)
[2017-05-25 06:43] LABS: #Basophils 0.1 thou/uL (0.0-0.2); #Eosinphils 0.5 thou/uL (0.0-0.7); #Lymphocytes 1.6 thou/uL (1.20-3.40); #Monocytes 0.9 thou/uL (0.11-0.59); #Neutrophils 9.1 thou/uL (1.40-6.50); %Basophils 0.6 % (0.0-1.0); %Eosinophils 4.2 % (0.0-10.0); %Lymphocytes 12.9 % (21.0-51.0); %Monocytes 7.4 % (0.0-10.0); Hematocrit 30.5 % (36.0-47.0); Mean Platelet Volume 7.3 fL (7.4-10.4); Red Blood Cell (RBC) Count 3.38 mill/uL (4.20-5.40); White Blood Cell (WBC) Count 12.1 thou/uL (4.8-10.8)
[2017-05-25 07:00] LABS: Anion Gap 10 mmol/L (10-20); BUN (Urea Nitrogen) 18 mg/dL (9.8-20.1); Calc. Creatinine Clearance 76 mL/min (70-130); Calcium 9.4 mg/dL (7.8-10.44); Carbon Dioxide 30 mmol/L (23-31); Chloride 103 mmol/L (98-107); Estimated GFR-MDRD 69; Magnesium 2.1 mg/dL (1.6-2.6)
--- NOTE | 2017-05-25 08:17 | PDOC.PN ---
- Subjective Encounter Start Date: 05/25/17 Encounter Start Time: 08:15 Subjective: No cp currently -: Had a pre-syncopal episode this AM at ~0300 -: No f/c - Objective MAR Reviewed: Yes Vital Signs & Weight: Vital Signs (12 hours) Temp Pulse Resp BP BP BP BP 05/25/17 03:31 98.1 F 05/25/17 02:55 88 20 116/66 05/24/17 23:45 98.6 F 94 18 116/54 L 05/24/17 20:44 98.2 F 90 16 140/61 140/69 110/56 L 05/24/17 20:43 98.2 F 90 16 140/61 Pulse Ox 05/25/17 03:31 05/25/17 02:55 95 05/24/17 23:45 95 05/24/17 20:44 96 05/24/17 20:43 96 Weight Weight 177 lb 11.2 oz I&O: 05/24/17 05/25/17 05/26/17 06:59 06:59 06:59 Intake Total 462 Output Total 400 Balance 62 Result Diagrams: 05/25/17 06:21 05/25/17 06:21 Additional Labs: Accuchecks 05/25/17 05/25/17 05/24/17 05:58 02:58 20:37 POC Glucose 193 H 198 H 193 H Phys Exam - Physical Examination Constitutional: NAD HEENT: PERRLA, moist MMs Neck: no nodes, no JVD Respiratory: no wheezing, no rales Cardiovascular: RRR, no significant murmur Gastrointestinal: soft, non-tender, positive bowel sounds midline chest incision c/d/i Neurological: non-focal, moves all 4 limbs Psychiatric: normal affect Skin: no rash, normal turgor Dx/Plan (1) Syncope and collapse Code(s): R55 - SYNCOPE AND COLLAPSE Status: Acute (2) S/P CABG (coronary artery bypass graft) Code(s): Z95.1 - PRESENCE OF AORTOCORONARY BYPASS GRAFT Status: Acute (3) Diabetes mellitus type 2 in obese Code(s): E11.69 - TYPE 2 DIABETES MELLITUS WITH OTHER SPECIFIED COMPLICATION; E66.9 - OBESITY, UNSPECIFIED Status: Chronic (4) Hypertension Code(s): I10 - ESSENTIAL (PRIMARY) HYPERTENSION Status: Chronic Qualifiers: - Plan Syncope and Collapse 2/2 Orthostatic Hypotension in the setting of CAD s/p CABG * CT head: no acute issues * serial cardiac enzymes negative: ruled out ACS * Orthostatic VS: Positive - start IVFs * ECHO: pending * Carotid Dopplers: no significant stenosis * Urine cx: NGTD * Blood cxs: NGTD * Consulted Cariology * fall precautions * PT/OT * check labs in AM DM * SSI * f/u accu checks HLD * continue statin HTN * monitor BP and HR closely Left Ankle/foot pain s/p fall * check Xrays Dispo: Continue inpt
[2017-05-25] MEDS: Alogliptin Benzoate 6.25 MG TABLET PO SCH (08:27)
[2017-05-25] MEDS: Aspirin 325 mg Enteric Coated Tablet PO SCH (08:27)
[2017-05-25] MEDS: Vit A,C & E/Lutein/Minerals Tablet PO SCH (08:27)
[2017-05-25] MEDS: Carvedilol 25 MG TAB PO SCH ×2 (08:27→20:56)
[2017-05-25] MEDS: Famotidine/PF 20 mg/2ml Vial SLOW IVP SCH ×2 (08:28→20:56)
[2017-05-25] MEDS: Sodium Chloride 0.9% 1,000 ML IV SCH (08:33)
[2017-05-25] MEDS ORDERED: FLU VACC TS2017-18 (>65YR) 0.5 ML SYRINGE IM ONE (09:00)
--- NOTE | 2017-05-25 10:20 | RAD ---
LEFT ANKLE THREE VIEWS: History: Status post fall with swelling. FINDINGS: There is an obliquely oriented nondisplaced distal fibular fracture. There is an avulsive type injur y from the tip of the medial malleolus. This may be old or possibly acute. I would favor this is old er injury. There is slight widening to the distance between the medial malleolus and talus may be pr esent and there is what appears to be a possible subtle osteochondral lesion in the medial side of t he talar dome. IMPRESSION: 1. Obliquely oriented nondisplaced distal fibular fracture. 2. Avulsive injury from the tip of the medial malleolus. I would tend to favor that this is not an a cute injury. There is a questionable finding of a tiny osteochondral lesion in the medial side of th e talar dome. 3. Calcaneal spurs. POS: [facility]
--- NOTE | 2017-05-25 10:24 | RAD ---
LEFT FOOT THREE VIEWS: History: Pain on lateral side of foot. Status post fall. FINDINGS: The bones are demineralized. There are some arthritic changes of the first metatarsal phalangeal ynes nt. Nondisplaced distal fibular fracture is partially visualized. Calcaneal spurs are present. IMPRESSION: Nondisplaced distal fibular fracture. POS: [facility]
--- NOTE | 2017-05-25 16:41 | CON ---
DATE OF CONSULTATION: 05/25/2017 DATE OF ADMISSION: 05/24/2017 INDICATION FOR CONSULTATION: A 76-year-old female with syncopal episode. HISTORY OF PRESENT ILLNESS: This is a very pleasant 76-year-old female who recently underwent bypas s surgery after suffering a non-ST segment elevation myocardial infarction, was in rehabilitation, s he had left rehab yesterday and went to do some shopping and then prior to even getting into the sto re, she felt very lightheaded and dizzy and then had a syncopal episode. She did not injure herself or at least on her head, but she did injure her left ankle when she fell to the ground. Her husban d was there and assisted her, but still was unable to completely hold her up. She has had previous episodes in the past of vasovagal syncope and again this morning around 3 o'clock in the morning, sh camille went to the bathroom and had another episode where she almost had a near syncopal episode. At kendy t time, the monitor does not show any arrhythmias or bradycardia, but most likely she had hypotensio n associated with the episode. She says in the past when she has had these episodes and to see whet her they are associated with either pain, stress or dehydration, and most likely also low blood pres sure. At this time, she is asymptomatic. Her x-rays does show that she has a left fibula fracture which is nondisplaced, but otherwise she has been stable on the telemetry floor. She has had no comfort vation of the cardiac enzymes and she denies any chest pain and seems to be recovering quite well fr om her bypass surgery from a coronary standpoint. PAST MEDICAL HISTORY: Significant for degenerative joint disease, anxiety, hysterectomy. She has h ad wrist surgeries. She has macular degeneration. She also has had the recent bypass surgery as no reji above with the GRANGER to the LAD. SOCIAL HISTORY: She is . She has no alcohol or tobacco abuse. FAMILY HISTORY: There is some family history of diabetes, CVAs, and coronary artery disease. ALLERGIES: She is allergic to CODEINE, GABAPENTIN, PENICILLIN, and SIMVASTATIN. MEDICATIONS: Other medications, please refer to notes in the list. Her present medications include alogliptin, aspirin, Coreg, Pepcid, simvastatin, vitamins and other p.r.n. medications. REVIEW OF SYSTEMS: A 12-point review of systems unremarkable. HEENT: She wears glasses, otherwise HEENT was unremarkable. Pulmonary: She denied any asthma, emphysema or bronchitis. She had no GI complaints except for daily diarrhea if she does not take medications. She had no complaints. She had no musculoskeletal complaints except for the recent pain in the left ankle after she fell an d she does have some swelling. She has had some history of seizure activity in the past. These are associated with syncopal episodes, most likely due to some mild anoxia or hypoxemia, otherwise no s ignificant neurological problems. She has had syncope in the past. PHYSICAL EXAMINATION: GENERAL: Reveals a well-developed and well-nourished female. VITAL SIGNS: Blood pressure is 102/57, earlier it was 125/64, heart rate is 79-94 and shows a sinus rhythm, respiratory rate is 18. She is afebrile. HEENT: Shows head to be normocephalic and atraumatic. Carotid pulses are present. There were no b ruits. There is no JVD. The thyroid is not enlarged. Oral mucosa was pink and moist. CHEST: Clear to auscultation. There are no rales, rhonchi or wheezing. She is well-healed midline surgical incision which is still healing after median sternotomy. CARDIOVASCULAR: Exam reveals a regular rate and rhythm, normal S1, S2. There is no S3 or S4. Ther e were no significant murmurs, heaves, thrills, bruits or rubs noted. ABDOMEN: Soft and nontender with positive bowel sounds. No organomegaly or masses noted. Femoral pulses are present. EXTREMITIES: Showed no clubbing or cyanosis. She does have some mild left ankle swelling, this is not edema, but appears to be swollen with some mild discoloration. Pedal pulses are present. NEUROLOGIC: She appears to be intact. Her EKG shows a normal sinus rhythm with T-wave inversion in the anterior lateral leads, which may b e still present from previous surgery. I do not have any old EKGs for comparison at this time. Her laboratory data shows hemoglobin 10.1, creatinine is 0.81, potassium is 4.4. There are no other si gnificant abnormalities and cardiac enzymes are negative. IMPRESSION: 1. Syncopal episode, most likely vasovagal, which may be due to dehydration, orthostatic hypotensio n. We need to continue to follow. She did not have any arrhythmias or bradycardia. With the recent episodes that we can determine is I think while she was monitored, there were no episodes at that t dora of any decrease in the heart rate or any other arrhythmias. She may have had hypotension, but t his was not measured at that time. 2. History of coronary artery disease and status post bypass surgery. She remains stable. 3. Degenerative joint disease. She now has a new left fracture. This is needs to be dealt with by the orthopedist, otherwise from a cardiac standpoint, she remains stable. We will continue to shade tor the patient with you. At this time, there is no indication that she needs a pacemaker since she has been monitored and had a repeat episode, it does appear to be that this is hypotensive episodes .
--- NOTE | 2017-05-25 17:27 | CON ---
DATE OF CONSULTATION: 05/25/2017 CHIEF COMPLAINT: Ankle pain. HISTORY OF PRESENT ILLNESS: Ms. Person is a 76-year-old female who recently underwent coronary ar james bypass graft. She was back at home. She was out doing some shopping today when she had a sync opal episode. She became dizzy and fell. She injured her left ankle. Orthopedics was consulted fo r this. She has been admitted to the hospital for further workup. PAST MEDICAL HISTORY: Includes, 1. Coronary artery disease status post recent coronary artery bypass graft. 2. Diabetes mellitus. 3. Hyperlipidemia. 4. Hypertension. 5. Anxiety. 6. Degenerative joint disease. PAST SURGICAL HISTORY: Colonoscopy, hysterectomy, previous distal radius fracture surgery, and jori nary artery bypass graft. FAMILY MEDICAL HISTORY: Positive for diabetes, CVA, and cancer. SOCIAL HISTORY: The patient denies tobacco, alcohol, or drug use. ALLERGIES: The patient is allergic to CODEINE, GABAPENTIN, PENICILLIN, SIMVASTATIN. PHYSICAL EXAMINATION: MUSCULOSKELETAL: The patient's left foot and ankle was examined. She has some swelling of the foot and ankle. She is able to flex and extend the toes. She has a palpable dorsalis pedis pulse. Sen sation is intact in the distal aspect of the foot. SKIN: Intact. IMAGES: X-rays of the ankle and foot are reviewed. The patient has a left fibular fracture with mi nimal displacement. There is no significant ankle mortise widening or widening of the medial clear space. There is a chronic avulsion fracture of the medial malleolus. IMPRESSION: Syncopal episode with a recent history of coronary artery bypass graft, now with an acu te left ankle fracture. PLAN: At this point, the patient can go into a walking boot for support. She can be 50% weightbear ing on her left leg. She should elevate the leg for swelling. She can have appropriate pain contro l. I would like the patient to follow up in the Orthopedic Clinic in 2-3 weeks for repeat x-ray corona vinhation of the ankle to ensure that she has maintained alignment.
[2017-05-25] MEDS: HumaLOG 300 UNITS/3 ML VIAL SC PRN (17:29)
[2017-05-26] MEDS: Sodium Chloride 0.9% 1,000 ML IV SCH ×2 (02:35→15:36)
[2017-05-26 05:27] LABS: #Eosinphils 0.7 thou/uL (0.0-0.7); #Lymphocytes 2.1 thou/uL (1.20-3.40); #Monocytes 0.9 thou/uL (0.11-0.59); #Neutrophils 7.4 thou/uL (1.40-6.50); %Basophils 0.4 % (0.0-1.0); %Eosinophils 5.9 % (0.0-10.0); %Lymphocytes 19.3 % (21.0-51.0); %Monocytes 7.7 % (0.0-10.0); Hematocrit 29.7 % (36.0-47.0); Mean Platelet Volume 6.9 fL (7.4-10.4); Red Blood Cell (RBC) Count 3.25 mill/uL (4.20-5.40); White Blood Cell (WBC) Count 11.1 thou/uL (4.8-10.8)
[2017-05-26 05:58] LABS: Anion Gap 10 mmol/L (10-20); BUN (Urea Nitrogen) 15 mg/dL (9.8-20.1); Calc. Creatinine Clearance 76 mL/min (70-130); Calcium 8.8 mg/dL (7.8-10.44); Carbon Dioxide 28 mmol/L (23-31); Chloride 105 mmol/L (98-107); Estimated GFR-MDRD 69; Magnesium 1.7 mg/dL (1.6-2.6)
[2017-05-26] MEDS: HYDROcodone/Acetaminophen 5/325 mg Tablet PO PRN (06:31)
[2017-05-26] MEDS: Carvedilol 25 MG TAB PO SCH (09:03)
[2017-05-26] MEDS: Famotidine/PF 20 mg/2ml Vial SLOW IVP SCH (09:03)
[2017-05-26] MEDS: Alogliptin Benzoate 6.25 MG TABLET PO SCH (09:03)
[2017-05-26] MEDS: Aspirin 325 mg Enteric Coated Tablet PO SCH (09:03)
[2017-05-26] MEDS: Vit A,C & E/Lutein/Minerals Tablet PO SCH (09:03)
[2017-05-26 11:40] VITALS: TEMP 98.7
[2017-05-26] MEDS: HumaLOG 300 UNITS/3 ML VIAL SC PRN (12:03)
[2017-05-26 14:52] VITALS: BP 126/72
--- NOTE | 2017-05-26 18:38 | DIS ---
DATE OF ADMISSION: 05/24/2017 DATE OF DISCHARGE: 05/26/2017 DISCHARGE DIAGNOSES: 1. Orthostatic hypotension. 2. Syncope with fall. 3. Acute left ankle fracture secondary to fall. 4. Coronary artery disease status post coronary artery bypass grafting on late 04/2017. She had by pass x2 vessels for left anterior descending artery after having a non-ST elevation myocardial infar ction. 5. Diabetes mellitus type 2. 6. Hyperlipidemia. 7. Hypertension. 8. Anxiety. 9. Degenerative joint disease. CONSULTATIONS: 1. Orthopedics, Dr. Arnulfo Santizo. 2. Cardiology, Dr. Portillo. HISTORY AND PHYSICAL: Ms. Person is a pleasant 76-year-old female who was admitted prior to this hospital stay from 05/06/2017-05/14/2017 for non-ST elevation AR and subsequent coronary artery bypa ss grafting x2 vessels. She was discharged on 05/14/2017 and apparently was doing well. She had go ne to cardiac rehabilitation the day of admission and had really worked harder then she was discharg ed from the hospital. After that, she did go shopping and when she was leaving market felt lighthea ded and actually lost consciousness and syncopized and fell to the ground. She was out for maybe a few seconds, did not hit her head per observers, when she woke up, she had acute left ankle pain and was brought to the emergency department for evaluation. Workup in the emergency department revealed acute left ankle fracture, she was orthostatic, and was subsequently admitted to the hospital for further workup and evaluation. HOSPITAL COURSE: The patient was seen and examined by Dr. Kulkarni on 05/24/2017. Head CT, orthosta tic vitals, cardiac enzyme trend, echocardiogram, carotid Dopplers, urine culture and blood cultures , and Cardiology consultation were all ordered. The patient was placed on insulin sliding scale for diabetes and was continued on her home medications for hyperlipidemia. Her blood pressure and hear t rate were monitored closely on telemetry. Overnight 05/24/2017-05/25/2017, she was found to have an acute left ankle fracture. Orthopedics sa w her and recommended a walking boot and 50% weightbearing with follow up in their office in 2-3 wee ks to make sure everything was taking proper alignment. From a cardiac perspective, she was felt to be only orthostatic. Her blood pressure medicines were adjusted by Dr. Portillo and telemetry was nega tive for any arrhythmias. She was continued on monitoring overnight and by today was feeling much b wilner. Echocardiogram report returned with ejection fraction 45%-50% with dyskinetic septum. She h as no new findings at this time. The patient was adamant about going home that day, and following up with Dr. Mancilla who did her surg johnathan. Orthostatics was doing morning rounds when I was first seeing her should not have any orthosta sis and she had no lightheadedness. She was otherwise stable and was stable for discharge home with outpatient follow up when cleared by Dr. Portillo. PHYSICAL EXAMINATION: The patient was seen and examined on the day of discharge. Discharge plan and disposition were discussed with the patient face to face at the bedside. DISCHARGE MEDICATIONS: 1. Aspirin 325 mg daily. 2. Carvedilol 25 mg p.o. b.i.d. 3. Amaryl 2 mg p.o. q.p.m. 4. Loperamide p.r.n. 5. Multivitamin with folic acid, lutein, and zeaxanthin 1 tablet daily. 6. Crestor 10 mg p.o. at bedtime. 7. Metformin 500 mg p.o. b.i.d. 8. Januvia 50 mg p.o. q.p.m. FOLLOWUP APPOINTMENTS: 1. Primary care physician within a week. 2. Dr. Mancilla today at 15:45. 3. Dr. Pack in 1 or 2 weeks per clinic schedule. DISCHARGE CONDITION: Stable. DISPOSITION: The patient is being discharged home via private vehicle. Followup appointments with Dr. Arnulfo Santizo in 2-3 weeks. ACTIVITY: The patient is being placed 50% weightbearing to her left leg until cleared by Orthopedic s. DISCHARGE DIET: Heart healthy diet with calcium carbohydrates. The patient is to return if she has worsening pain, trauma symptoms and has more syncopal episodes.
== END 2017-05-26 17:12 | disposition home or self-care (01) | DRG 282 ==
LOC: ERS 13:01 → 2NO 18:29
PROVIDERS: ADMIT Hospitalist; ATTEND Hospitalist
DX: I95.1 Orthostatic hypotension (principal); I21.4 Non-ST elevation (NSTEMI) myocardial infarction; E11.9 Type 2 diabetes mellitus without complications; S82.832A Other fracture of upper and lower end of left fibula, initial encounter for closed fracture; W01.0XXA Fall on same level from slipping, tripping and stumbling without subsequent striking against object, initial encounter; Z95.1 Presence of aortocoronary bypass graft; E78.5 Hyperlipidemia, unspecified; F41.9 Anxiety disorder, unspecified
CPT/HCPCS: 36415; 36416; 70450; 71010; 80048; 80053; 82553; 83690; 83735; 84484; 85025; 87040; 87077; 87086; 87186; 90471; 90682; 93005; 93306; 93798; 93880; 94760; A4216; G0008; G8978-GP-CL; G8979-GP-CJ; G8987-GO-CJ; G8988-GO-CH; Q2036; S0028

== ENCOUNTER 2019-09-08 01:06 | Emergency (ER) | payer MEDICARE, BC ==
[2019-09-08 01:49] LABS: #Basophils 0.1 thou/uL (0.0-0.2); #Eosinphils 0.2 thou/uL (0.0-0.7); #Lymphocytes 2.6 thou/uL (1.20-3.40); #Monocytes 0.8 thou/uL (0.11-0.59); #Neutrophils 7.3 thou/uL (1.40-6.50); %Basophils 0.7 % (0.0-1.0); %Eosinophils 1.6 % (0.0-10.0); %Monocytes 6.9 % (0.0-10.0); %Neutrophils 66.9 % (42.0-75.0); Hemoglobin 11.5 g/dL (12.0-16.0); Mean Corpuscular HGB CONC 31.4 g/dL (32.0-36.0); Mean Corpuscular Hemoglobin 28.5 pg (27.0-31.0); Mean Corpuscular Volume 90.6 fL (78.0-98.0); Mean Platelet Volume 7.9 fL (7.4-10.4); Platelet Count 208 thou/uL (130-400); RBC Distribution Width 13.7 % (11.5-14.5); Red Blood Cell (RBC) Count 4.05 mill/uL (4.20-5.40)
[2019-09-08 02:03] LABS: ALT (SGPT) 10 U/L (8-55); AST (SGOT) 12 U/L (5-34); Albumin 3.7 g/dL (3.4-4.8); Alkaline Phosphatase 50 U/L (40-110); Anion Gap 15 mmol/L (10-20); BUN (Urea Nitrogen) 15 mg/dL (9.8-20.1); Bilirubin, Total 0.5 mg/dL (0.2-1.2); Calc. Creatinine Clearance 0 mL/min (70-130); Calcium 8.5 mg/dL (7.8-10.44); Carbon Dioxide 19 mmol/L (23-31); Chloride 109 mmol/L (98-107); Estimated GFR-MDRD 70; Globulin 2.3 g/dL (2.4-3.5); Glucose 203 mg/dL (83-110); Potassium 4.2 mmol/L (3.5-5.1); Sodium 139 mmol/L (136-145)
--- NOTE | 2019-09-08 08:27 | RAD ---
PORTABLE CHEST ONE VIEW: HISTORY: Injury from fall. Weakness. Syncope. COMPARISON: 05/24/2017 FINDINGS: Postop midline sternotomy. Minimal increased linear and interstitial changes in the lung bases, havin g more the appearance of chronic change versus mild subsegmental atelectasis. No confluent pneumonia, overt edema or significant pleural effusion. IMPRESSION: Minimal bibasilar linear changes having more of a chronic appearance or subsegmental atelectasis with out other acute process. POS: [employer]
== END 2019-09-08 03:12 | disposition home or self-care (01) ==
LOC: ERS 01:06
DX: R55 Syncope and collapse (principal); E78.5 Hyperlipidemia, unspecified; I10 Essential (primary) hypertension; M19.90 Unspecified osteoarthritis, unspecified site; I25.2 Old myocardial infarction; E11.40 Type 2 diabetes mellitus with diabetic neuropathy, unspecified; Z79.82 Long term (current) use of aspirin; Z79.84 Long term (current) use of oral hypoglycemic drugs; Z79.891 Long term (current) use of opiate analgesic; Z79.899 Other long term (current) drug therapy
CPT/HCPCS: 36415; 71045; 80053; 84484; 85025; 93005; 94760; 96360

== ENCOUNTER 2021-01-11 10:14 | Emergency (ER) | payer MEDICARE, BC ==
[2021-01-11] MEDS ORDERED: HYDROcodone/Acetaminophen 10/325 mg Tablet ONE (10:39)
== END 2021-01-11 11:30 | disposition home or self-care (01) ==
LOC: ERS 10:14
DX: S42.201A Unspecified fracture of upper end of right humerus, initial encounter for closed fracture (principal); E78.5 Hyperlipidemia, unspecified; I10 Essential (primary) hypertension; I25.2 Old myocardial infarction; E11.40 Type 2 diabetes mellitus with diabetic neuropathy, unspecified; W19.XXXA Unspecified fall, initial encounter

== ENCOUNTER 2025-07-09 11:15 | Emergency (ER) | payer MEDICARE ==
[2025-07-09 11:55] LABS: #Basophils 0.03 10x3/uL (0.0-0.2); #Eosinophils 0.17 10x3/uL (0.0-0.7); #Monocytes 0.54 10x3/uL (0.11-0.59); #Neutrophils 5.65 10x3/uL (1.40-6.50); %Basophils 0.3 % (0.0-1.0); %Eosinophils 1.9 % (0.0-10.0); %Lymphocytes 28.7 % (21.0-51.0); %Monocytes 6.0 % (0.0-10.0); %Neutrophils 62.7 % (42.0-75.0); Hematocrit 36.9 % (36.0-47.0); Hemoglobin 11.8 g/dL (12.0-16.0); Mean Corpuscular Hemoglobin 27.8 pg (27.0-31.0); Mean Corpuscular Volume 86.8 fL (78.0-98.0); Platelet Count 245 10x3/uL (130-400); Red Blood Cell (RBC) Count 4.25 mill/uL (4.20-5.40); White Blood Cell (WBC) Count 9.02 10x3/uL (4.8-10.8)
[2025-07-09 12:10] LABS: ALT (SGPT) 7 U/L (Less than 34); AST (SGOT) 20 U/L (11-34); Albumin 3.9 g/dL (3.1-4.5); Alkaline Phosphatase 86 U/L (40-110); Anion Gap 16 mmol/L (10-20); BUN (Urea Nitrogen) 27 mg/dL (9.8-20.1); Bilirubin, Total 0.4 mg/dL (0.3-1.2); Calc. Creatinine Clearance 0 mL/min (70-130); Calcium 9.9 mg/dL (7.8-10.44); Carbon Dioxide 22 mmol/L (23-31); Chloride 107 mmol/L (98-107); Globulin 3.3 g/dL (2.4-3.5); Glucose 172 mg/dL (83-110); Potassium 4.8 mmol/L (3.5-5.1); Sodium 140 mmol/L (136-145)
[2025-07-09 13:54] LABS: Bacteria/HPF 3+ HPF (None Seen); CAUTI Indications for Culture Alt mental st,lethar; Glucose, Urine (Dipstick) Greater than 1000 mg/dL (Negative); Leukocyte 500 Leu/uL (Negative); Protein, Urine (Dipstick) 10 mg/dL (Neg-Trace); RBC/HPF 0-3 HPF (0-3); Specific Gravity, Urine 1.024 (1.002-1.036); WBC/HPF Greater than 50 HPF (0-3)
[2025-07-09 14:14] LABS: Urine Culture Reflex Yes Yes
[2025-07-09] MEDS ORDERED: cefTRIAXone (ROCEPHIN) 1 GM VIAL ONE (14:41)
== END 2025-07-09 15:23 | disposition home or self-care (01) ==
LOC: ERS 11:15
DX: R55 Syncope and collapse (principal); N39.0 Urinary tract infection, site not specified; E86.0 Dehydration; I10 Essential (primary) hypertension; I25.2 Old myocardial infarction; E78.5 Hyperlipidemia, unspecified; E11.40 Type 2 diabetes mellitus with diabetic neuropathy, unspecified; Z79.82 Long term (current) use of aspirin; Z79.84 Long term (current) use of oral hypoglycemic drugs; Z79.899 Other long term (current) drug therapy
CPT/HCPCS: 70450; 80053; 81001; 83605; 84484; 85025; 87086; 93005; J0696; 36415; 87077; 96361; 96365